=== PATIENT | male | born 1950 | race Caucasian/White ===

== ENCOUNTER 2016-10-18 00:23 | Emergency (ER) | payer OTHER, BC ==
[2016-10-18 00:31] VITALS: TEMP 97.7
[2016-10-18] MEDS ORDERED: NS 1,000 ML IV ONE ×2 (00:39→00:40)
[2016-10-18] MEDS ORDERED: METOCLOPRAMIDE 10 MG/2 ML VIAL IVP ONE (00:40)
[2016-10-18 01:01] LABS: ALANINE AMINOTRANSFERASE 32 IU/L (21-72); ALBUMIN 4.6 g/dL (3.5-5.0); ALKALINE PHOSPHATASE 80 IU/L (38-126); ANION GAP 8 mEq/L (8-16); ASPARTATE AMINOTRANSFERASE 20 IU/L (17-59); BILIRUBIN-CONJUGATED 0.4 mg/dL (0.0-0.5); BILIRUBIN-UNCONJUGATED 0.6 mg/dL (0.0-1.1); CALCIUM 9.4 mg/dL (8.5-10.4); CARBON DIOXIDE 27 mEq/l (22-31); CHLORIDE 105 mEq/L (97-110); CREATININE 0.7 mg/dL (0.7-1.3); GLOMERULAR FILTRATION RATE > 60; GLUCOSE 285 mg/dL (70-100); POTASSIUM 4.5 mEq/L (3.5-5.2); SODIUM 140 mEq/L (134-144); TOTAL PROTEIN 7.4 g/dL (6.3-8.2)
[2016-10-18 01:49] LABS: % IMMATURE GRANULYOCYTES 0.6 % (0.0-1.1); ABSOLUTE IMMATURE GRANULOCYTES 0.05 10^3/uL (0.00-0.10); ABSOLUTE NRBC COUNT 0.02 10^3/uL (0-0.01); ADD DIFF? NO; ADD MORPH? NO; ADD SCAN? NO; ATYPICAL LYMPHOCYTE FLAG 0 (0-99); FRAGMENT RBC FLAG 0 (0-99); HEMATOCRIT 44.7 % (40.0-51.0); LEFT SHIFT FLG 0 (0-99); LIPEMIA HEMOLYSIS FLAG 90 (0-99); MEAN CELL HEMOGLOBIN 31.1 pg (27.9-34.1); MEAN CELL HEMOGLOBIN CONCENTR. 35.8 g/dL (32.4-36.7); MEAN PLATELET VOLUME 10.5 fL (8.7-11.7); NRBC-AUTO% 0.2 % (0.0-0.2); PLATELET CLUMPS FLAG 10 (0-99); PLATELET COUNT 103 10^3/uL (150-400); RED BLOOD CELL COUNT 5.14 10^6/uL (4.40-6.38); RED CELL DISTRIBUTION WIDTH 13.1 % (11.5-15.2)
[2016-10-18 02:01] LABS: COLOR YELLOW; LEUKOCYTE ESTERASE,URINE NEGATIVE (NEGATIVE); NITRITE,URINE NEGATIVE (NEGATIVE)
--- NOTE | 2016-10-18 03:06 | EDPHY ---
H & P Stated Complaint: emesis and dizziness HPI/ROS: HPI The patient presents brought in by ambulance for nausea and vomiting that began about 4 hours ago. He had about 5 episodes of nonbloody nonbilious emesis. This was associated with a feeling of dizziness which he described it as lightheadedness upon standing. He has not had any abdominal pain, diarrhea, constipation or obstipation. The paramedics gave him Zofran on the way in, his blood sugar was checked and was 297. He has a history of hypertension and diabetes but has not been on medications for several years due to cost issues.. REVIEW OF SYSTEMS Constitutional: No fever, no chills. Eyes: No discharge. ENT: No sore throat. Cardiovascular: No chest pain, no palpitations. Respiratory: No cough, no shortness of breath. Gastrointestinal: No abdominal pain, no vomiting. Genitourinary: No hematuria. Musculoskeletal: No back pain. Skin: No rashes. Neurological: No headache. 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 PHYSICAL General Appearance: Alert, no distress Eyes: Pupils equal and round no pallor or injection ENT, Mouth: Mucous membranes dry Respiratory: There are no retractions, lungs are clear to auscultation Cardiovascular: Regular rate and rhythm Gastrointestinal: Abdomen is soft and non-tender, easily reducible ventral hernia Neurological: A&O, moves all extremities Skin: Warm and dry, no rashes Musculoskeletal: Neck is supple non tender Extremities: symmetrical, full range of motion Psychiatric: Patient is oriented X 3, there is no agitation Source: Patient, EMS - Personal History Current Tetanus/Diphtheria Vaccine: Yes Current Tetanus Diphtheria and Acellular Pertussis (TDAP): Yes - Medical/Surgical History Hx Asthma: No Hx Chronic Respiratory Disease: No Hx Diabetes: Yes Hx Cardiac Disease: No Hx Renal Disease: No Hx Cirrhosis: No Hx Alcoholism: Yes Hx HIV/AIDS: No Hx Splenectomy or Spleen Trauma: No Other PMH: pmh- colon ca (), deperession w/ suicide attempts (2004), recovering alcoholic. psh- colon resection, colostomy w/ resection - Social History Smoking Status: Current every day smoker Constitutional: Initial Vital Signs Temperature (C) 36.5 C 10/18/16 00:30 Heart Rate 61 10/18/16 00:30 Respiratory Rate 16 10/18/16 00:30 Blood Pressure 211/98 H 10/18/16 00:30 O2 Sat (%) 94 10/18/16 00:30 O2 Delivery Mode Room Air Allergies/Adverse Reactions: No Known Allergies Allergy (Verified 10/18/16 00:32) Home Medications: Medication Instructions Recorded Atorvastatin Calcium [Lipitor] 10/18/16 Ondansetron Odt [Zofran Odt 4 mg 4 mg PO Q4 PRN #10 tab 10/18/16 (*)] Medical Decision Making Differential Diagnosis: This is a 65-year-old man with history of diabetes, hypertension, colon cancer status post bowel resection who presents with several hours of nausea and vomiting associated with lightheadedness. On exam, he is mildly dehydrated, he is hypertensive, his abdominal exam is benign. Differential diagnosis includes viral gastroenteritis, toxin mediated enterocolitis, DKA, gastritis, less likely bowel obstruction given no abdominal tenderness and able to move his bowels. In the emergency room the patient was given IV fluids and antiemetics with complete resolution of his symptoms. He felt well. Labs were checked and revealed an elevated glucose with no signs of DKA. I have discussed this with him, I am concerned that he is poorly managed diabetes and hypertension because he is not taking his medications. I will give him information for follow-up with [facility] and have advised him to make an appointment soon. I will discharge him with a prescription for Zofran. I have discussed return precautions with him including any abdominal pain. - Data Points Laboratory Results: Laboratory Results 10/18/16 01:30 10/18/16 00:00 10/18/16 10/18/16 10/18/16 01:30 01:20 00:00 WBC 8.53 10^3/uL 10^3/uL (3.80-9.50) RBC 5.14 10^6/uL 10^6/uL (4.40-6.38) Hgb 16.0 g/dL g/dL (13.7-17.5) Hct 44.7 % % (40.0-51.0) MCV 87.0 fL fL (81.5-99.8) MCH 31.1 pg pg (27.9-34.1) MCHC 35.8 g/dL g/dL (32.4-36.7) RDW 13.1 % % (11.5-15.2) Plt Count 103 10^3/uL L 10^3/uL (150-400) MPV 10.5 fL fL (8.7-11.7) Neut % (Auto) 87.7 % H % (39.3-74.2) Lymph % (Auto) 8.2 % L % (15.0-45.0) [place] % (Auto) 2.7 % L % (4.5-13.0) Eos % (Auto) 0.4 % L % (0.6-7.6) Baso % (Auto) 0.4 % % (0.3-1.7) Nucleat RBC Rel Count 0.2 % % (0.0-0.2) Absolute Neuts (auto) 7.49 10^3/uL H 10^3/uL (1.70-6.50) Absolute Lymphs (auto) 0.70 10^3/uL L 10^3/uL (1.00-3.00) Absolute Monos (auto) 0.23 10^3/uL L 10^3/uL (0.30-0.80) Absolute Eos (auto) 0.03 10^3/uL 10^3/uL (0.03-0.40) Absolute Basos (auto) 0.03 10^3/uL 10^3/uL (0.02-0.10) Absolute Nucleated RBC 0.02 10^3/uL H 10^3/uL (0-0.01) Immature Gran % 0.6 % % (0.0-1.1) Immature Gran # 0.05 10^3/uL 10^3/uL (0.00-0.10) Sodium 140 mEq/L mEq/L (134-144) Potassium 4.5 mEq/L mEq/L (3.5-5.2) Chloride 105 mEq/L mEq/L (97-110) Carbon Dioxide 27 mEq/l mEq/l (22-31) Anion Gap 8 mEq/L mEq/L (8-16) BUN 16 mg/dL mg/dL (7-23) Creatinine 0.7 mg/dL mg/dL (0.7-1.3) Estimated GFR > 60 Glucose 285 mg/dL H mg/dL (70-100) Calcium 9.4 mg/dL mg/dL (8.5-10.4) Total Bilirubin 1.0 mg/dL mg/dL (0.1-1.4) Conjugated Bilirubin 0.4 mg/dL mg/dL (0.0-0.5) Unconjugated Bilirubin 0.6 mg/dL mg/dL (0.0-1.1) AST 20 IU/L IU/L (17-59) ALT 32 IU/L IU/L (21-72) Alkaline Phosphatase 80 IU/L IU/L (38-126) Total Protein 7.4 g/dL g/dL (6.3-8.2) Albumin 4.6 g/dL g/dL (3.5-5.0) Lipase 119.0 IU/L IU/L (23-300) Urine Color YELLOW Urine Appearance CLEAR Urine pH 7.0 (5.0-7.5) Ur Specific [place]m 1.017 (1.002-1.030) Urine Protein 1+ H (NEGATIVE) Urine Ketones TRACE H (NEGATIVE) Urine Blood NEGATIVE (NEGATIVE) Urine Nitrate NEGATIVE (NEGATIVE) Urine Bilirubin NEGATIVE (NEGATIVE) Urine Urobilinogen NEGATIVE EU EU (0.2-1.0) Ur Leukocyte Esterase NEGATIVE (NEGATIVE) Urine RBC 1-3 /hpf /hpf (0-3) Urine WBC 1-3 /hpf /hpf (0-3) Ur Epithelial Cells Not Reported Ur Culture Indicated? NOT INDICATED (NI) Urine Glucose 3+ H (NEGATIVE) 10/18/16 00:00 WBC REJ RBC REJ Hgb REJ Hct REJ MCV REJ MCH REJ MCHC REJ RDW REJ Plt Count REJ MPV REJ Neut % (Auto) REJ Lymph % (Auto) REJ [place] % (Auto) REJ Eos % (Auto) REJ Baso % (Auto) REJ Nucleat RBC Rel Count REJ Absolute Neuts (auto) REJ Absolute Lymphs (auto) REJ Absolute Monos (auto) REJ Absolute Eos (auto) REJ Absolute Basos (auto) REJ Absolute Nucleated RBC REJ Immature Gran % REJ Immature Gran # REJ Sodium Potassium Chloride Carbon Dioxide Anion Gap BUN Creatinine Estimated GFR Glucose Calcium Total Bilirubin Conjugated Bilirubin Unconjugated Bilirubin AST ALT Alkaline Phosphatase Total Protein Albumin Lipase Urine Color Urine Appearance Urine pH Ur Specific Helm Urine Protein Urine Ketones Urine Blood Urine Nitrate Urine Bilirubin Urine Urobilinogen Ur Leukocyte Esterase Urine RBC Urine WBC Ur Epithelial Cells Ur Culture Indicated? Urine Glucose Medications Given: Discontinued Medications Sodium Chloride (Ns) 1,000 mls @ 0 mls/hr IV ONCE ONE PRN Reason: Wide Open Stop: 10/18/16 00:40 Last Admin: 10/18/16 00:40 Dose: 1,000 mls Sodium Chloride (Ns) 1,000 mls @ 0 mls/hr IV ONCE ONE PRN Reason: Wide Open Stop: 10/18/16 00:41 Last Admin: 10/18/16 00:42 Dose: 1,000 mls Metoclopramide HCl (Reglan Injection) 10 mg IVP EDNOW ONE Stop: 10/18/16 00:41 Last Admin: 10/18/16 00:56 Dose: 10 mg Ondansetron HCl (Zofran Odt 4 Mg Prepack#2) 1 btl TAKEHOME EDNOW ONE Stop: 10/18/16 03:18 Last Admin: 10/18/16 03:18 Dose: 1 btl Departure - Departure Disposition: Home, Routine, Self-Care Clinical Impression: Nausea & vomiting Qualifiers: Vomiting type: unspecified Vomiting Intractability: non-intractable Qualified Code(s): R11.2 - Nausea with vomiting, unspecified Hyperglycemia due to type 2 diabetes mellitus Qualifiers: Diabetes mellitus ad terminal makeup operator insulin use: without ad terminal makeup operator use Qualified Code(s ): E11.65 - Type 2 diabetes mellitus with hyperglycemia HTN (hypertension) Qualifiers: Hypertension type: essential hypertension Qualified Code(s): I10 - Essential ( primary) hypertension Condition: Good Instructions: Acute Nausea and Vomiting (ED) Additional Instructions: Please return to the emergency room if your worse in any way. It is very important that you see a primary care doctor. I have given you the information for [facility]. Your diabetes and hypertension are out of control and need to be managed. Referrals: [facility] [Outside] - As per Instructions Prescriptions: Ondansetron Odt [Zofran Odt 4 mg (*)] 4 mg PO Q4 PRN #10 tab PRN Reason: Nausea/Vomiting, Can'T Take Po
[2016-10-18] MEDS ORDERED: ONDANSETRON 4MG PREPACK#2 BTL TAKEHOME ONE ×2 (03:11→03:17)
[2016-10-18 03:19] VITALS: BP 176/89; PULSE 55; RESP 16; O2SAT 93
== END 2016-10-18 03:19 | disposition home or self-care (01) ==
LOC: EDUNIT#
DX: R11.2 Nausea with vomiting, unspecified (principal); E11.65 Type 2 diabetes mellitus with hyperglycemia; I10 Essential (primary) hypertension; F17.200 Nicotine dependence, unspecified, uncomplicated; Z85.038 Personal history of other malignant neoplasm of large intestine
CPT/HCPCS: 96361; 96374; 99284; J2765

== ENCOUNTER 2016-11-12 18:58 | Inpatient (IN) | payer BC, OTHER ==
--- NOTE | 2016-11-12 19:11 | EDPHY ---
H & P Time Seen by Provider: 11/12/16 19:07 HPI/ROS: Chief complaint. Dizzy HPI. 66-year-old male dizziness for 3 weeks. He has a history of hypertension diabetes and been off his medication for quite some time. After the onset of dizziness [facility] went [facility] and was recently started on medication again for hypertension and diabetes. However the dizziness is continued. Today was somewhat worsening was off balance. The dizziness made him vomit. Really has more lightheaded sensation and near syncope then sense of motion or spinning. Denies chest discomfort, shortness of breath, abdominal pain. No previous similar symptoms. No recent URI symptoms. No change in his hearing. Patient has gradually poor vision and has seen an head athletic trainer/strength coach in the last couple weeks which shows bilateral cataracts and he has surgery scheduled coming up in the next few weeks. ROS Constitutional. no fever/chills, no weakness Eyes. Bilateral cataracts causing problem with vision ENT. no sore throat, no nasal drainage Cardiovascular. no chest pain Respiratory. no shortness of breath, no cough Abdominal. no abdominal pain, no nausea/vomiting, no diarrhea . no problems urinating MS. no calf pain/swelling, no neck/back pain, no joint pain Skin. no rash Lymph. no swollen glands Neuro. Dizziness and off balance. Near syncope Past Medical/Surgical History: Past medical history colon cancer with bowel resection, hypertension, diabetes Social History: Single, nonsmoker, no alcohol Smoking Status: Current every day smoker Physical Exam: General Appearance: Alert well-developed male mild distress vital signs show blood pressure 208/91 otherwise normal. Eyes: Pupils are equal round reactive. There is no nystagmus.. ENT, Mouth: Mucous membranes are moist. Respiratory: There are no retractions, lungs are clear to auscultation. Cardiovascular: Regular rate and rhythm. Gastrointestinal: Abdomen is soft and nontender, no masses, bowel sounds normal. Neurological: Awake and alert, sensory and motor exams grossly normal. Skin: Warm and dry, no rashes. Musculoskeletal: Neck is supple nontender. Extremities symmetrical, full range of motion. Psychiatric: Patient is oriented X 3, there is no agitation. Constitutional: Initial Vital Signs Temperature (C) 36.6 C 11/12/16 19:11 Heart Rate 73 11/12/16 19:11 Respiratory Rate 20 11/12/16 19:11 Blood Pressure 208/91 H 11/12/16 19:11 O2 Sat (%) 94 11/12/16 19:11 O2 Delivery Mode Room Air Allergies/Adverse Reactions: No Known Allergies Allergy (Verified 11/12/16 19:10) Home Medications: Medication Instructions Recorded Atorvastatin Calcium [Lipitor] 10/18/16 Ondansetron Odt [Zofran Odt 4 mg 4 mg PO Q4 PRN #10 tab 10/18/16 (*)] Aspirin 81mg (*) 11/12/16 Crestor 11/12/16 Lisinopril 11/12/16 Metformin HCl 11/12/16 Medical Decision Making - Diagnostics EKG Interpretation: EKG interpreted by me shows normal sinus rhythm with normal interval and axis. There is incomplete right bundle branch block. There is some T-wave flattening. No significant ST elevation or depression. No arrhythmia. The rate is 60 Imaging Results: Imaging Impressions Head CT 11/12/16 20:08 Impression: 1. Moderate atrophy. 2. No acute hemorrhage, hydrocephalus, or mass effect. 3. Cerebrovascular atherosclerosis. 4. No definite acute infarct. 5. Moderate microvascular ischemic gliosis. 6. Old lacunar infarcts bilateral cerebral white matter. 7.Consider MRI of the brain without and with contrast enhancement, if there is continued clinical concern. Findings and recommendations discussed with Emergency Department physician, KAJAL MELENDEZ at 2045 hour, 11/12/2016. Final report concurs with initial preliminary interpretation. Head CT reviewed by me and discussed with shows atrophy but otherwise nonacute Procedures: IV normal saline, monitor. Meclizine by mouth ED Course/Re-evaluation: Re-evaluation 8:10 p.m.--stable. We discussed lab results so far and recommendation for head CT. Patient expresses understanding and agreement re-evaluation 9:30 p.m.--patient is still quite dizzy. He feels that he is off balance enough that he is a fall risk at home. He lives alone and feels hit he cannot go home tonight. He and I discussed imaging and lab results. I consulted and discussed the case with Dr. Young, hospitalist, who agrees to the admission Differential Diagnosis: I considered CVA, cardiac arrhythmia, acute coronary syndrome. Patient's blood pressure is poorly controlled and his blood sugar is also poorly controlled despite starting new medication in the last couple weeks. - Data Points Laboratory Results: Laboratory Results 11/12/16 19:05 11/12/16 19:05 11/12/16 11/12/16 19:05 19:05 WBC 12.20 10^3/uL H 10^3/uL (3.80-9.50) RBC 5.73 10^6/uL 10^6/uL (4.40-6.38) Hgb 17.4 g/dL g/dL (13.7-17.5) Hct 47.8 % % (40.0-51.0) MCV 83.4 fL fL (81.5-99.8) MCH 30.4 pg pg (27.9-34.1) MCHC 36.4 g/dL g/dL (32.4-36.7) RDW 12.7 % % (11.5-15.2) Plt Count 153 10^3/uL 10^3/uL (150-400) MPV 10.0 fL fL (8.7-11.7) Neut % (Auto) 85.5 % H % (39.3-74.2) Lymph % (Auto) 11.6 % L % (15.0-45.0) [place] % (Auto) 1.8 % L % (4.5-13.0) Eos % (Auto) 0.2 % L % (0.6-7.6) Baso % (Auto) 0.3 % % (0.3-1.7) Nucleat RBC Rel Count 0.0 % % (0.0-0.2) Absolute Neuts (auto) 10.43 10^3/uL H 10^3/uL (1.70-6.50) Absolute Lymphs (auto) 1.41 10^3/uL 10^3/uL (1.00-3.00) Absolute Monos (auto) 0.22 10^3/uL L 10^3/uL (0.30-0.80) Absolute Eos (auto) 0.03 10^3/uL 10^3/uL (0.03-0.40) Absolute Basos (auto) 0.04 10^3/uL 10^3/uL (0.02-0.10) Absolute Nucleated RBC 0.00 10^3/uL 10^3/uL (0-0.01) Immature Gran % 0.6 % % (0.0-1.1) Immature Gran # 0.07 10^3/uL 10^3/uL (0.00-0.10) Sodium 140 mEq/L mEq/L (134-144) Potassium 4.2 mEq/L mEq/L (3.5-5.2) Chloride 102 mEq/L mEq/L (97-110) Carbon Dioxide 23 mEq/l mEq/l (22-31) Anion Gap 15 mEq/L mEq/L (8-16) BUN 18 mg/dL mg/dL (7-23) Creatinine 0.8 mg/dL mg/dL (0.7-1.3) Estimated GFR > 60 Glucose 230 mg/dL H mg/dL (70-100) Calcium 9.8 mg/dL mg/dL (8.5-10.4) Troponin I < 0.012 ng/mL ng/mL (0-0.034) Medications Given: Discontinued Medications Sodium Chloride (Ns) 1,000 mls @ 0 mls/hr IV ONCE ONE PRN Reason: Wide Open Stop: 11/12/16 19:30 Last Admin: 11/12/16 19:43 Dose: 1,000 mls Meclizine HCl (Meclizine Hcl) 25 mg PO EDNOW ONE Stop: 11/12/16 19:30 Last Admin: 11/12/16 19:43 Dose: 25 mg Departure - Departure Disposition: [facility] Inpatient Acute Clinical Impression: Near syncope Condition: Fair Referrals: Patient,NotPresent [Unknown] - As per Instructions
[2016-11-12] MEDS ORDERED: MECLIZINE HCL 25 MG TAB PO ONE (19:29)
[2016-11-12] MEDS ORDERED: NS 1,000 ML IV ONE (19:29)
[2016-11-12 19:34] LABS: % IMMATURE GRANULYOCYTES 0.6 % (0.0-1.1); ABSOLUTE IMMATURE GRANULOCYTES 0.07 10^3/uL (0.00-0.10); ADD DIFF? NO; ADD MORPH? NO; ADD SCAN? NO; ATYPICAL LYMPHOCYTE FLAG 0 (0-99); FRAGMENT RBC FLAG 0 (0-99); HEMATOCRIT 47.8 % (40.0-51.0); HEMOGLOBIN 17.4 g/dL (13.7-17.5); LEFT SHIFT FLG 0 (0-99); LIPEMIA HEMOLYSIS FLAG 90 (0-99); MEAN CELL HEMOGLOBIN 30.4 pg (27.9-34.1); MEAN CELL HEMOGLOBIN CONCENTR. 36.4 g/dL (32.4-36.7); MEAN CELL VOLUME 83.4 fL (81.5-99.8); PLATELET CLUMPS FLAG 20 (0-99); PLATELET COUNT 153 10^3/uL (150-400); RED BLOOD CELL COUNT 5.73 10^6/uL (4.40-6.38); RED CELL DISTRIBUTION WIDTH 12.7 % (11.5-15.2)
[2016-11-12 19:41] LABS: ANION GAP 15 mEq/L (8-16); CALCIUM 9.8 mg/dL (8.5-10.4); CARBON DIOXIDE 23 mEq/l (22-31); CHLORIDE 102 mEq/L (97-110); CREATININE 0.8 mg/dL (0.7-1.3); GLOMERULAR FILTRATION RATE > 60; GLUCOSE 230 mg/dL (70-100); POTASSIUM 4.2 mEq/L (3.5-5.2); SODIUM 140 mEq/L (134-144)
[2016-11-12 19:52] LABS: TROPONIN I < 0.012 ng/mL (0-0.034)
--- NOTE | 2016-11-12 20:59 | CPEKG ---
Heart Rate: 65 RR Interval: 923 P-R Interval: 164 QRSD Interval: 108 QT Interval: 444 QTC Interval: 462 P Emblem: 48 QRS Emblem: 38 T Wave Emblem: -82 EKG Severity - ABNORMAL ECG - EKG Impression: SINUS RHYTHM EKG Impression: INCOMPLETE RIGHT BUNDLE BRANCH BLOCK Electronically Signed By: Nathan Salter 12-Nov-2016 21:28:29
[2016-11-12] MEDS ORDERED: ACETAMINOPHEN 325 MG TAB PO PRN (22:27)
[2016-11-12] MEDS ORDERED: HYDROCODONE/APAP 5/325 TAB PO PRN (22:27)
[2016-11-12] MEDS ORDERED: ALBUTEROL 3 ML DEYVIAL IH PRN (22:27)
[2016-11-12] MEDS ORDERED: ONDANSETRON DISINTEGRATING 4 MG TAB PO PRN (22:27)
[2016-11-12] MEDS ORDERED: ONDANSETRON 4 MG/2 ML VIAL IVP PRN (22:27)
[2016-11-12] MEDS ORDERED: LABETALOL HCL 50 MG/10 ML SYR IVP ONE (22:30)
[2016-11-12] MEDS ORDERED: LABETALOL HCL 5 MG/ML 20 ML MDV IVP PRN (22:31)
[2016-11-12] MEDS ORDERED: D50W 25 GM/50 ML SYR IVP PRN (23:06)
--- NOTE | 2016-11-13 02:10 | PDGENHP ---
History and Physical - Chief Complaint dizziness - History of Present Illness Patient was seen and examined on 11/12/2016 The patient is a 66-year-old male with a history of hypertension, DM 2, hyperlipidemia who presents to the ED with complaint of dizziness. Patient states he had been off his anti-hypertensive meds for some time (reason unclear) , but his dizziness began about 3 weeks ago. He describes it as a feeling of being unbalanced and lightheaded , associated with nausea and vomiting. Came to the ED at the onset of his symptoms about 3 weeks ago where he was given symptomatic treatment of his nausea and referred to the [facility] for primary care. Reports establish care at the [facility], where he was restarted on antihypertensives, oral diabetic medicines and statin. Despite reported compliance with all as newly prescribed meds, patient's dizziness has persisted. He also reports an associated blurriness in his vision, which he reports has been diagnosed as due to cataracts, for which he is seeing an ophthalmic photographer. Today he again felt his dizziness, felt off balance although did not fall, so he decided to come to the ED for further evaluation. On arrival to the ED patient was afebrile, markedly hypertensive and saturating well on room air. Labs revealed normal BMP, mild leukocytosis on CBC. CT head was obtained and revealed chronic lacunar infarcts, but no acute infarct, edema or hemorrhage. EKG showed sinus rhythm without ST /T-wave changes. He was then admitted to the hospital service for further management. History Information - Allergies/Home Medication List Allergies/Adverse Reactions: No Known Allergies Allergy (Verified 11/12/16 19:10) Home Medications: Aspirin [Aspirin 325 mg (*)] 325 mg PO DAILY 11/12/16 [Last Taken 11/12/16] Lisinopril [Zestril 10 mg (*)] 20 mg PO DAILY 11/12/16 [Last Taken 11/12/16] Rosuvastatin Calcium [Crestor 10mg (RX)] 10 mg PO DAILY 11/12/16 [Last Taken 12/24] metFORMIN HCL [Glucophage 500 mg (*)] 500 mg PO BIDMEAL 11/12/16 [Last Taken 12/24 FIRST DOSE] I have personally reviewed and updated: family history, medical history, social history, surgical history - Past Medical History diabetes type 2, hypertension, hyperlipidemia Additional medical history: History of colon cancer S/P resection, in remission - Surgical History Additional surgical history: partial colectomy - Family History Additional family history: father: Mi at 68 - Social History Smoking Status: Current every day smoker (1/2 ppd times 45 years) Alcohol Use: None Drug Use: None Additional social history: 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 lives alone is independent in ADLs. Review of Systems ROS: 10pt was reviewed & negative except for what was stated in HPI & below Physical Exam Temp Pulse Resp BP Pulse Ox 36.7 C 61 18 202/90 H 92 11/13/16 00:00 11/13/16 00:00 11/13/16 00:00 11/13/16 00:00 11/13/16 00:00 Constitutional: no apparent distress, appears nourished, not in pain Eyes: PERRL, anicteric sclera, EOMI Ears, Nose, Mouth, Throat: moist mucous membranes, hearing normal, ears appear normal, no oral mucosal ulcers Cardiovascular: regular rate and rhythym, no murmur, rub, or gallop, pulses symmetric bilaterally, No JVD, No edema Peripheral Pulses: 2+: dorsalis-pedis (R), dorsalis-pedis (L) Respiratory: no respiratory distress, no rales or rhonchi, clear to auscultation Gastrointestinal: normoactive bowel sounds, soft, non-tender abdomen, no palpable masses, No guarding, No rebound Genitourinary: no bladder fullness, no bladder tenderness Skin: warm, normal color, no rashes or abrasions, no fluctuance, no induration, No mottled Musculoskeletal: full muscle strength, no muscle tenderness, normal joint ROM, no joint effusions Neurologic: AAOx3, sensation intact bilaterally, CN II-XII Intact, No weakness, No numbness, No facial droop Psychiatric: interacting appropriately, not anxious, not encephalopathic, thought process linear Lab Data & Imaging Review 11/12/16 19:05 11/12/16 19:05 WBC 12.20 10^3/uL (3.80-9.50) H 11/12/16 19:05 RBC 5.73 10^6/uL (4.40-6.38) 11/12/16 19:05 Hgb 17.4 g/dL (13.7-17.5) 11/12/16 19:05 Hct 47.8 % (40.0-51.0) 11/12/16 19:05 MCV 83.4 fL (81.5-99.8) 11/12/16 19:05 MCH 30.4 pg (27.9-34.1) 11/12/16 19:05 MCHC 36.4 g/dL (32.4-36.7) 11/12/16 19:05 RDW 12.7 % (11.5-15.2) 11/12/16 19:05 Plt Count 153 10^3/uL (150-400) 11/12/16 19:05 MPV 10.0 fL (8.7-11.7) 11/12/16 19:05 Neut % (Auto) 85.5 % (39.3-74.2) H 11/12/16 19:05 Lymph % (Auto) 11.6 % (15.0-45.0) L 11/12/16 19:05 [place] % (Auto) 1.8 % (4.5-13.0) L 11/12/16 19:05 Eos % (Auto) 0.2 % (0.6-7.6) L 11/12/16 19:05 Baso % (Auto) 0.3 % (0.3-1.7) 11/12/16 19:05 Nucleat RBC Rel Count 0.0 % (0.0-0.2) 11/12/16 19:05 Absolute Neuts (auto) 10.43 10^3/uL (1.70-6.50) H 11/12/16 19:05 Absolute Lymphs (auto) 1.41 10^3/uL (1.00-3.00) 11/12/16 19:05 Absolute Monos (auto) 0.22 10^3/uL (0.30-0.80) L 11/12/16 19:05 Absolute Eos (auto) 0.03 10^3/uL (0.03-0.40) 11/12/16 19:05 Absolute Basos (auto) 0.04 10^3/uL (0.02-0.10) 11/12/16 19:05 Absolute Nucleated RBC 0.00 10^3/uL (0-0.01) 11/12/16 19:05 Immature Gran % 0.6 % (0.0-1.1) 11/12/16 19:05 Immature Gran # 0.07 10^3/uL (0.00-0.10) 11/12/16 19:05 Sodium 140 mEq/L (134-144) 11/12/16 19:05 Potassium 4.2 mEq/L (3.5-5.2) 11/12/16 19:05 Chloride 102 mEq/L (97-110) 11/12/16 19:05 Carbon Dioxide 23 mEq/l (22-31) 11/12/16 19:05 Anion Gap 15 mEq/L (8-16) 11/12/16 19:05 BUN 18 mg/dL (7-23) 11/12/16 19:05 Creatinine 0.8 mg/dL (0.7-1.3) 11/12/16 19:05 Estimated GFR > 60 11/12/16 19:05 Glucose 230 mg/dL (70-100) H 11/12/16 19:05 Calcium 9.8 mg/dL (8.5-10.4) 11/12/16 19:05 Troponin I < 0.012 ng/mL (0-0.034) 11/12/16 19:05 Visualized and Interpreted imaging results: Yes Interpretation: CT head: evidence of chronic lacunar infarcts, moderate atrophy , no acute edema, infarct or hemorrhage. Visualized and Interpreted EKG results: Yes EKG Interpretation: Positive for: normal sinsus rhythm Assessment & Plan Assessment: Patient is a 66-year-old male with a history of hypertension, DM 2, hyperlipidemia who presents to the ED with complaint of dizziness. ED workup reveals marked hypertension, CT head shows no acute changes. Plan: # dizziness This may be a symptom of his uncontrolled hypertension vs BPPV versus primary neurologic event. Patient reports symptoms resolve when he is sedentary and not moving, but are worse with activity or when trying to walk. Noncontrast CT head did not show any acute abnormalities. Will attempt to control patient's BP, give trial of meclizine, and consider further head imaging if symptoms persist. # Uncontrolled hypertension SBP was greater than 200 on presentation, with no evidence of acute end-organ damage. Likely chronically uncontrolled, with acute worsening due to above symptoms. Will attempt to lower BP by about 25% within the 1st hours and then to normal levels beyond that. Give hydralazine prn, resume home lisinopril 20 mg po and consider adding a second oral agent as needed. Will also check TTE, follow cardiac enzymes and EKGs. # DM2 On metformin in outpatient. Will monitor FS and provide sliding scale coverage. # HLD Cont home statin # dispo: admit to observation status # gen: cardiac/diabetic diet DVT ppx: lovenox if staying > 24 hours FUll code
--- NOTE | 2016-11-13 05:38 | CPEKG ---
Heart Rate: 75 RR Interval: 800 P-R Interval: 164 QRSD Interval: 106 QT Interval: 408 QTC Interval: 456 P [place]: 66 QRS [place]: 65 T Wave [place]: -77 EKG Severity - BORDERLINE ECG - EKG Impression: SINUS RHYTHM EKG Impression: BORDERLINE T ABNORMALITIES, INFERIOR LEADS Electronically Signed By: Nate Aguila 13-Nov-2016 23:59:38
[2016-11-13 06:46] LABS: % IMMATURE GRANULYOCYTES 0.5 % (0.0-1.1); ABSOLUTE IMMATURE GRANULOCYTES 0.05 10^3/uL (0.00-0.10); ADD DIFF? NO; ADD MORPH? NO; ADD SCAN? NO; ATYPICAL LYMPHOCYTE FLAG 0 (0-99); FRAGMENT RBC FLAG 0 (0-99); HEMATOCRIT 40.6 % (40.0-51.0); LEFT SHIFT FLG 0 (0-99); LIPEMIA HEMOLYSIS FLAG 90 (0-99); MEAN CELL HEMOGLOBIN 30.7 pg (27.9-34.1); MEAN CELL HEMOGLOBIN CONCENTR. 36.9 g/dL (32.4-36.7); MEAN PLATELET VOLUME 9.9 fL (8.7-11.7); PLATELET CLUMPS FLAG 0 (0-99); PLATELET COUNT 128 10^3/uL (150-400); RED BLOOD CELL COUNT 4.89 10^6/uL (4.40-6.38); RED CELL DISTRIBUTION WIDTH 12.8 % (11.5-15.2)
[2016-11-13 06:50] LABS: INR 1.08 (0.83-1.16); PROTIME(PATIENT) 13.9 SEC (12.0-15.0)
[2016-11-13 07:33] LABS: ANION GAP 7 mEq/L (8-16); CALCIUM 8.9 mg/dL (8.5-10.4); CARBON DIOXIDE 24 mEq/l (22-31); CHLORIDE 105 mEq/L (97-110); CREATININE 0.7 mg/dL (0.7-1.3); GLOMERULAR FILTRATION RATE > 60; GLUCOSE 170 mg/dL (70-100); MAGNESIUM 1.7 mg/dL (1.6-2.3); POTASSIUM 4.2 mEq/L (3.5-5.2); SODIUM 136 mEq/L (134-144)
[2016-11-13] MEDS: ASPIRIN 325 MG TAB PO SCH (09:30)
[2016-11-13] MEDS: LISINOPRIL 20 MG TAB PO SCH (09:31)
[2016-11-13] MEDS: ROSUVASTATIN CALCIUM 10 MG TAB PO SCH (09:31)
[2016-11-13] MEDS: INSULIN LISPRO 100 UNIT/ML SC SCH ×3 (09:49→18:08)
--- NOTE | 2016-11-13 12:04 | ECHO ---
[id number] [id number] + + [address] : : [place] [address] : : [phone] + + Adult Echocardiographic Report + ---------+ :Name: JUDIT LIM TStudy Date: 11/13/2016 10:50 AM : : Hospital Admission Number: [id number] Keturah bateman: 206: :: 1950 Gender: Male Height: 69 i n : :Age: 66 yrs Race: WH Weight: 170 lb : :Reason For Study: accelerated HTN : : BSA: 1.9 met ers2 : :History: No previous : + ---------+ MMode/2D Measurements \T\ Calculations IVSd: 1.4 cm LVIDd: 4.5 cm FS: 45.9 % LVOT diam: 2.1 cm LVPWd: 0.97 cm LVIDs: 2.4 cm EDV(Teich): LVOT area: 90.7 ml 3.4 cm2 ESV(Teich): 20.5 ml EF(Teich): 77.4 % LVLd ap4: 6.9 cm SV(MOD-sp4): EDV(MOD-sp4): 45.0 ml 64.0 ml LVLs ap4: 5.9 cm ESV(MOD-sp4): 19.0 ml EF(MOD-sp4): 70.3 % Normal Measurement Values: + + :LVIDd (3.5-5.7cm) IVSd (0.6-1.1cm) LVPWd (0.6-1.1cm) Aortic Root (2.0-3.7cm)Left Atrium (1.5-4.0cm): :LV Vol(d) (76-115ml) LV Vol(s) (29-48ml) Ejec Fraction (50-65%)PV Oh (0.6- 1.2m/s) TV Oh (0.4-1.0m/s) : :MV E Oh (0.8-1.0m/s)MV A Oh (0.3-1.0m/s)LVOT Oh (0.7-1.2m/s) Asc Ao Oh ( 0.9-1.8m/s) : + + Doppler Measurements \T\ Calculations MV E max oh: MV V2 mean: Ao mean PG: LV V1 max: 77.0 cm/sec 60.7 cm/sec 3.3 mmHg 119.4 cm/sec MV A max oh: MV mean PG: Ao V2 mean: LV V1 max P.7 cm/sec 1.7 mmHg 86.8 cm/sec 5.7 mmHg MV E/A: 0.75 MV V2 VTI: 28.4 cmAo V2 VTI: 25.1 cm LV V1 mean PG: MV dec time: MVA(VTI): 2.9 cm2 FARZANA(I,D): 3.3 cm2 2.8 mmHg 0.26 sec LV V1 mean: 74.9 cm/sec LV V1 VTI: 24.2 cm SV(LVOT): 83.3 ml PA V2 max: TR max oh: 96.4 cm/sec 241.6 cm/sec PA max PG: TR max P.7 mmHg 23.4 mmHg RAP systole: 10.0 mmHg RVSP(TR): 33.4 mmHg Left Ventricle The left ventricle is normal in size and function. There is mild asymmetric left ventricular hypertrophy. Ejection Fraction = 60-70%. There is Doppler evidence for diastolic dysfunction. No regional wall motion abnormalities noted. Right Ventricle The right ventricle is not well visualized. The right ventricular systolic function is normal. Atria The left atrial size is normal. Right atrial size is normal. Mitral Valve The mitral valve is normal in structure and function. There is no mitral valve stenosis. There is trace mitral regurgitation. Tricuspid Valve Normal tricuspid valve. There is no tricuspid stenosis. There is trace to mild tricuspid regurgitation. Right ventricular systolic pressure is normal. Aortic Valve The aortic valve is normal in structure and function. There is no aortic stenosis. There is no aortic insufficiency. Pulmonic Valve The pulmonic valve is not well visualized. There is no pulmonic valvular stenosis. There is no pulmonic valvular regurgitation. Great Vessels The aortic root is normal size. Pericardium/Pleural There is a fat pad seen. There is no pericardial effusion. Conclusion A complete two-dimensional transthoracic echocardiogram was performed (2D, M-mode, Doppler and color flow Doppler). The left ventricle is normal in size and function. There is mild asymmetric left ventricular hypertrophy. Ejection Fraction = 60-70%. There is Doppler evidence for diastolic dysfunction. There is trace mitral regurgitation. There is trace to mild tricuspid regurgitation. Right ventricular systolic pressure is normal. The aortic valve is normal in structure and function. No prior echo Final Reading Physician: Dr Roxanne Mcqueen electronically signed on 11/13/2016 12:03 PM Ordering Physician: Naa Anthony Performed By: Kristina Gordon
--- NOTE | 2016-11-13 14:25 | HOSPPROG ---
Hospitalist Progress Note Assessment/Plan: # dizziness - head CT neg for acute changes, but does show old lacunar infarct. ?BPPV / inner ear disturbance vs visual input disturbance with cataract hx vs brainstem stroke. Orthostatics negative. -check MRI to r/o cerebellar stroke -cont ASA, statin -add meclizine for symptom management # Uncontrolled hypertension - SBP was greater than 200 on presentation, with no evidence of acute end-organ damage. He has not required prn meds beyond his daily lisinopril dose and BP's are improved today. # DM2 - bg's fairly well controlled. Resume MTF and cont SSI. # HLD - Cont home statin # dispo: change to inpt as requires further workup of dizziness and acute PT/OT for unsteadiness # gen: cardiac/diabetic diet DVT ppx: lovenox FUll code Subjective: Pt continues to c/o dizziness, mostly with sitting and standing/ walking. No significant symptoms at rest. Describes light-headed feeling, but also endorses going off to one side / vertigo. Reports cataracts and plans for surgery. Objective: Vital Signs Temp Pulse Resp BP Pulse Ox 36.8 C 69 16 146/70 H 91 L 11/13/16 12:10 11/13/16 12:10 11/13/16 12:10 11/13/16 12:10 11/13/16 12:10 Laboratory Results 11/13/16 06:35 11/12/16 11/13/16 11/14/16 05:59 05:59 05:59 Intake Total 1100 Output Total 900 350 Balance 200 -350 PT 13.9 SEC (12.0-15.0) 11/13/16 06:35 INR 1.08 (0.83-1.16) 11/13/16 06:35 - Physical Exam Constitutional: no apparent distress Eyes: PERRL, other (+horizontal nystagmus) Ears, Nose, Mouth, Throat: moist mucous membranes Cardiovascular: regular rate and rhythym Respiratory: no respiratory distress, clear to auscultation Gastrointestinal: normoactive bowel sounds, soft, non-tender abdomen Skin: warm Musculoskeletal: full muscle strength Neurologic: AAOx3, other (no facial asymmetry, neg pronator drift) ICD10 Worksheet Patient Problems: Problems Problem Status Onset Near syncope Acute
[2016-11-13] MEDS: MECLIZINE HCL 25 MG TAB PO PRN (15:52)
[2016-11-13] MEDS: metFORMIN HCL 500 MG TAB PO SCH (18:18)
[2016-11-14] MEDS: hydrALAZINE 20 MG/ML VIAL IVP PRN (06:16)
[2016-11-14] MEDS: MECLIZINE HCL 25 MG TAB PO PRN (06:18)
[2016-11-14] MEDS: INSULIN LISPRO 100 UNIT/ML SC SCH ×3 (07:42→16:51)
[2016-11-14] MEDS: LISINOPRIL 20 MG TAB PO SCH (07:58)
[2016-11-14] MEDS: metFORMIN HCL 500 MG TAB PO SCH (07:58)
[2016-11-14] MEDS: ROSUVASTATIN CALCIUM 10 MG TAB PO SCH (07:59)
[2016-11-14] MEDS: ASPIRIN 325 MG TAB PO SCH (07:59)
[2016-11-14] MEDS ORDERED: GADOBUTROL 10 ML VIAL IVP ONE (10:33)
--- NOTE | 2016-11-14 10:39 | HOSPPROG ---
Hospitalist Progress Note Assessment/Plan: # Acute/subacute cerebellar stroke - this is source of his dizziness. Neurology consulted, discussed with Dr. Sandra last night and Dr. Cruz this am. Telemetry personally reviewed, no e/o A fib thus far, continue monitoring. -echo today -MRI with contrast and angio head/neck per neurology -cont asa, statin -will need outpt senior care cardiac monitoring if no A fib identified here -BP control as below # Uncontrolled hypertension - SBP was greater than 200 on presentation, now 170 's-180's. -will up-titrate lisinopril, goal BP <140 in setting of embolic stroke # DM2 - bg's fairly well controlled. Hold MTF due to need for contrast studies. -SSI for bg control # HLD - Cont home statin # dispo: cont inpt, PT/OT # gen: cardiac/diabetic diet DVT ppx: lovenox FUll code Subjective: Pt still quite dizzy with ambulation, feels ok at rest in bed. No CP, SOB or palpitations. No fevers/chills. Eating well, uop good. Objective: Vital Signs Temp Pulse Resp BP Pulse Ox 36.8 C 69 19 173/84 H 92 11/14/16 07:11 11/14/16 07:11 11/14/16 07:11 11/14/16 07:11 11/14/16 07:11 11/13/16 11/14/16 11/15/16 05:59 05:59 05:59 Intake Total 500 Output Total 800 Balance -300 PT 13.9 SEC (12.0-15.0) 11/13/16 06:35 INR 1.08 (0.83-1.16) 11/13/16 06:35 - Physical Exam Constitutional: no apparent distress Eyes: PERRL Ears, Nose, Mouth, Throat: moist mucous membranes Cardiovascular: regular rate and rhythym Respiratory: no respiratory distress, clear to auscultation Gastrointestinal: normoactive bowel sounds, soft, non-tender abdomen Skin: warm, other (+facial rosacea) Musculoskeletal: full muscle strength Neurologic: AAOx3 Psychiatric: interacting appropriately ICD10 Worksheet Patient Problems: Problems Problem Status Onset Near syncope Acute
[2016-11-14] MEDS ORDERED: LISINOPRIL 20 MG TAB PO ONE (11:45)
[2016-11-14 14:57] LABS: CHOLESTEROL 125 mg/dL (140-220); CHOLESTEROL/HDL RATIO 2.98 RATIO (1.00-4.97); HIGH DENSITY LIPOPROTEIN 42 mg/dL (40-65); LOW DENSITY LIPOPROTEIN 63 mg/dL (80-100); NON-HIGH DENSITY LIPOPROTEIN 83 mg/dL (90-129); TRIGLYCERIDE 103 mg/dL (40-150); VERY LOW DENSITY LIPOPROTEINS 20 mg/dL (8-25)
--- NOTE | 2016-11-14 16:35 | ECHO ---
[id number] [id number] + + [address] : : [place] [address] : : [phone] + + Adult Echocardiographic Report + ----+ :Name: JUDIT LIM TStudy Date: 11/14/2016 12:36 PM : : Hospital Admission Number: [id number] : :: 1950 Gender: Male Height: 69 i n : :Age: 66 yrs Race: WH Weight: 170 lb : :Reason For Study: Eval for Embolic Source, Bubble Exam : : BSA: 1.9 met ers2: + ----+ MMode/2D Measurements \T\ Calculations IVSd: 1.4 cm LVIDd: 3.9 cm FS: 41.2 % Ao root diam: 3.5 cm LVPWd: 1.2 cm LVIDs: 2.3 cm EDV(Teich): 65.2 ml ACS: 1.9 cm ESV(Teich): 17.8 ml EF(Teich): 72.8 % Normal Measurement Values: + + :LVIDd (3.5-5.7cm) IVSd (0.6-1.1cm) LVPWd (0.6-1.1cm) Aortic Root (2.0-3.7cm)Left Atrium (1.5-4.0cm): :LV Vol(d) (76-115ml) LV Vol(s) (29-48ml) Ejec Fraction (50-65%)PV Oh (0.6- 1.2m/s) TV Oh (0.4-1.0m/s) : :MV E Oh (0.8-1.0m/s)MV A Oh (0.3-1.0m/s)LVOT Oh (0.7-1.2m/s) Asc Ao Oh ( 0.9-1.8m/s) : + + Doppler Measurements \T\ Calculations MV E max oh: Ao V2 max: LV V1 max: PA V2 max: 69.1 cm/sec 118.1 cm/sec 104.6 cm/sec 82.8 cm/sec MV A max oh: Ao max PG: LV V1 max PG: PA max P.8 cm/sec 5.6 mmHg 4.4 mmHg 2.7 mmHg MV E/A: 0.77 TR max oh: 237.5 cm/sec TR max P.6 mmHg RAP systole: 5.0 mmHg RVSP(TR): 27.6 mmHg Left Ventricle The left ventricle is normal in size. There is mild to moderate concentric left ventricular hypertrophy. The left ventricular ejection fraction is normal. There is Doppler evidence for diastolic dysfunction. Ejection Fraction = 73%. The left ventricular wall motion is normal. Right Ventricle The right ventricle is normal in size and function. Atria The left atrial size is normal. Right atrial size is normal. Injection of contrast documented no interatrial shunt. The interatrial septum is intact with no evidence for an atrial septal defect. Mitral Valve The mitral valve is normal in structure and function. There is no mitral valve stenosis. There is trace mitral regurgitation. Tricuspid Valve The tricuspid valve is normal in structure and function. There is trace tricuspid regurgitation. Aortic Valve The aortic valve is normal in structure and function. The aortic valve is trileaflet. The aortic valve opens well. There is no aortic stenosis. There is no aortic insufficiency. Pulmonic Valve The pulmonic valve is normal in structure and function. There is no pulmonic valvular regurgitation. Great Vessels The aortic root is normal size. Pericardium/Pleural There is no pericardial effusion. Conclusion A complete two-dimensional transthoracic echocardiogram was performed (2D, M-mode, Doppler and color flow Doppler). There is mild to moderate concentric left ventricular hypertrophy. The left ventricular ejection fraction is normal. There is Doppler evidence for diastolic dysfunction. Ejection Fraction = 73%. The left ventricular wall motion is normal. Injection of contrast documented no interatrial shunt. The interatrial septum is intact with no evidence for an atrial septal defect. There is trace mitral regurgitation. The tricuspid valve is normal in structure and function. There is trace tricuspid regurgitation. The aortic valve is normal in structure and function. The aortic valve is trileaflet. There is no pericardial effusion. Final Reading Physician: Dr Roxanne Mcqueen electronically signed on 11/14/2016 04:34 PM Ordering Physician: Lazaro Cruz Performed By: Antonio French, [facility]
[2016-11-14] MEDS: ENOXAPARIN 40 MG/0.4 ML SYR SC SCH (17:00)
--- NOTE | 2016-11-14 17:01 | NEUROPROG ---
Assessment: 55 minutes of total unit time with review of case and face to face time with patient. Objective: Vital Signs Temp Pulse Resp BP Pulse Ox 36.8 C 67 18 160/84 H 94 11/14/16 15:37 11/14/16 15:37 11/14/16 15:37 11/14/16 15:37 11/14/16 15:37 11/13/16 11/14/16 11/15/16 05:59 05:59 05:59 Intake Total 500 360 Output Total 800 200 Balance -300 160 PT 13.9 SEC (12.0-15.0) 11/13/16 06:35 INR 1.08 (0.83-1.16) 11/13/16 06:35 Allergies/Adverse Reactions: No Known Allergies Allergy (Verified 11/12/16 19:10)
--- NOTE | 2016-11-14 21:59 | GCON ---
[f rep st] CONSULTATION NEUROLOGIC CONSULTATION REFERRING PHYSICIAN: Jelena Bowen MD HISTORY: The patient is a 66-year-old gentleman whom I am asked to see in Neurologic consultation r egarding stroke. The patient presented to the emergency department on November 12. At that time, he sp ecifically reported dizziness for about 3 weeks. He had evaluation in the [facility], and had been started on medication for his diabetes and hypertensive medications, which he had been off of f or some time, but symptoms have continued, and he was having trouble with balance, and sometimes vom iting with the dizziness. He came to the emergency department, and had acute evaluation, which did include head CT showing no acute stroke, but atrophy and microvascular change, and bilateral old lac unar infarcts in the white matter. He was quite dizzy, according to the reports, and felt very off- balance, and was thought to be unsafe to go home, and so he was admitted. 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 Collins, and subsequently had MRI later on the , in which the MRI doc umented multiple areas of acute ischemic change most likely, versus other atypical white matter proc ess. I was consulted today to evaluate the patient, and obtain history from him that symptoms are s imilar, but a little bit better, in terms of the intensity. He has never had this before. He does not have any long history of recurrent neurologic events. No history of TIA or prior stroke. PAST MEDICAL HISTORY: Prior history of diabetes, type 2, hypertension, hyperlipidemia, colon cancer . FAMILY HISTORY: Father had myocardial infarction. SOCIAL HISTORY: He smokes about a half-pack per day, and has smoked for at least 45 years. He live s independently. No alcohol or drug use. REVIEW OF SYSTEMS: Otherwise, a 10-point review of systems completed, unremarkable, except for that noted above. MEDICATIONS: He is currently taking aspirin, [place] as needed, insulin, lisinopril, meclizine, metfo rmin, ondansetron, Crestor. ALLERGIES: No allergies. PHYSICAL EXAM: VITAL SIGNS: The blood pressure is 160/84, pulse is 67, respirations 18, temperatur e 36.8. GENERAL: He is well developed, no acute distress. NECK: Supple. No bruits or masses. C ARDIAC: Regular rate and rhythm. No murmur. PSYCHIATRIC: He is alert and attentive, with clear a nd fluent speech and normal cognition. HEENT: Pupils are 3 mm and reactive. Extraocular movements are intact. Normal facial sensation and strength. NEUROLOGIC: Motor exam reveals normal muscle b ulk and tone, with 5/5 strength. No ataxia in the upper extremities, but he feels unsteady walking with the dizziness. LABORATORY DATA: In addition to the findings of multiple areas of probable ischemia, including supe rior cerebellar peduncle, he has had a contrasted study showing some mild enhancement of one of the lesions of uncertain significance, but not likely metastatic disease. Laboratory studies generally unremarkable, with LDL cholesterol of 63. He has some mild elevations of glucose. The MR angiogram of the head and neck are unremarkable. Routine echocardiogram is unremarkable, and ANSHUL is planned for tomorrow. The patient has an NIH Str shantel Scale of 1. IMPRESSION: Multiple small, acute ischemic strokes, likely accounting for this presentation. At th is point, my greatest concern would be a cardioembolic source, but small-vessel disease is possible. The bilateral distribution is what is so atypical for local thrombosis. This looks more like what we might see with a shower embolus. He does not have known atrial fibrillation, but will need cont inuous monitoring for that, and we need more thorough investigation with a transesophageal echocardi ogram. If all of this is negative, then we would probably recommend prolonged cardiac monitoring, a nd we will continue to work with Cardiology on this. For now, the treatment should continue with an tiplatelet therapy using aspirin. He is already taking a statin for secondary stroke prophylaxis, a nd treated for blood pressure and diabetes. Physical, occupational and speech therapy are appropria te to continue. Depending on his degree of clinical recovery, he may need rehab if he is not safe t o be discharged. /[id number]/MODL
[2016-11-15] MEDS ORDERED: NS 1,000 ML IV SCH (06:00)
[2016-11-15] MEDS: INSULIN LISPRO 100 UNIT/ML SC SCH ×3 (08:19→17:42)
[2016-11-15] MEDS: ROSUVASTATIN CALCIUM 10 MG TAB PO SCH (08:20)
[2016-11-15] MEDS: ENOXAPARIN 40 MG/0.4 ML SYR SC SCH (08:20)
[2016-11-15] MEDS: LISINOPRIL 20 MG TAB PO SCH (08:20)
[2016-11-15] MEDS: ASPIRIN 325 MG TAB PO SCH (08:20)
[2016-11-15] MEDS: hydrALAZINE 20 MG/ML VIAL IVP PRN (09:31)
--- NOTE | 2016-11-15 09:32 | NEUROPROG ---
Assessment: A total of 25 minutes of unit time was spent in udnc-oe-regn discussion and review of his case as well as planning for additional treatments. The patient has most likely multiple small embolic infarcts with a cardioembolic source currently suspected, even though we do not have a specific diagnosis for this. There are not large vessel stenoses. He has multiple risk factors. Aspirin remains appropriate for now. The transesophageal echocardiogram is pending. We will make further decisions based on those results, but he may be able to be discharged today and then have a more prolonged nuclear monitoring technician placed as outpatient or the time of discharge. Subjective: Edenilson is reporting that he has been doing relatively well overnight but continues to have rather profound dizziness when he tries to walk. He denies headache or fever or chills. Objective: Vital Signs Temp Pulse Resp BP Pulse Ox 36.7 C 68 15 182/96 H 93 11/15/16 07:45 11/15/16 07:45 11/15/16 07:45 11/15/16 07:45 11/15/16 07:45 11/14/16 11/15/16 11/16/16 05:59 05:59 05:59 Intake Total 500 900 Output Total 800 1200 Balance -300 -300 PT 13.9 SEC (12.0-15.0) 11/13/16 06:35 INR 1.08 (0.83-1.16) 11/13/16 06:35 No change in is examination and no new findings to report. Allergies/Adverse Reactions: No Known Allergies Allergy (Verified 11/12/16 19:10)
[2016-11-15] MEDS ORDERED: MIDAZOLAM 2 MG/2 ML VIAL ONE ×2 (10:32)
[2016-11-15] MEDS ORDERED: fentaNYL 100 MCG/2 ML INJ ONE (10:33)
--- NOTE | 2016-11-15 14:58 | HOSPPROG ---
Hospitalist Progress Note Assessment/Plan: # Acute/subacute cerebellar stroke - this is source of his dizziness, which is still rather severe with ambulation. Telemetry personally reviewed, no e/o A fib thus far, continue monitoring. -ANSHUL pending, sounds like it was neg for thrombus from pt report -cont asa, statin -will need outpt [facility] cardiac monitoring if no A fib identified here, d/ w cards, who will arrange -BP control as below -inpt rehab eval as pt unsafe to dc home # Uncontrolled hypertension - SBP was greater than 200 on presentation, goal < 140 with recent embolic stroke. SBP's still 170-180 despite up-titration of lisinopril to 40 mg daily yesterday -add low dose norvasc today # DM2 - bg's fairly well controlled. Hold MTF given recent contrast studies -recheck Cr tomorrow -SSI for bg control # HLD - Cont home statin # dispo: cont inpt, PT/OT # gen: cardiac/diabetic diet DVT ppx: lovenox FUll code Subjective: Pt feels okay at rest in bed, quite dizzy with ambulation, requiring walker, assistance. No CP or SOB. Objective: Vital Signs Temp Pulse Resp BP Pulse Ox 36.7 C 67 16 153/77 H 93 11/15/16 13:33 11/15/16 13:33 11/15/16 13:33 11/15/16 13:33 11/15/16 13:33 11/14/16 11/15/16 11/16/16 05:59 05:59 05:59 Intake Total 500 900 Output Total 800 1200 Balance -300 -300 PT 13.9 SEC (12.0-15.0) 11/13/16 06:35 INR 1.08 (0.83-1.16) 11/13/16 06:35 - Physical Exam Constitutional: no apparent distress Eyes: PERRL Ears, Nose, Mouth, Throat: moist mucous membranes Cardiovascular: regular rate and rhythym, no murmur, rub, or gallop Respiratory: no respiratory distress, clear to auscultation Gastrointestinal: normoactive bowel sounds, soft, non-tender abdomen Skin: warm Musculoskeletal: full muscle strength Neurologic: AAOx3 Psychiatric: interacting appropriately ICD10 Worksheet Patient Problems: Problems Problem Status Onset Near syncope Acute Stroke due to embolism Acute
--- NOTE | 2016-11-15 17:34 | ECHO ---
[id number] [id number] + + [address] : : [facility] [address] : : [phone] + + Transesophageal Echocardiographic Report + ---------+ :Name: JUDIT LMI TStudy Date: 11/15/2016 11:23 AM : : Hospital Admission Number: [id number] Loca tion: CVC: :: 1950 Gender: Male : :Age: 66 yrs Race: WH : :Reason For Study: Eval for Embolic Source : :History: CVA : + ---------+ Left Ventricle The left ventricle is normal in size. The left ventricular ejection fraction is normal. The left ventricular wall motion is normal. Right Ventricle The right ventricle is normal in size and function. Atria Injection of contrast documented no interatrial shunt. No left atrial mass or thrombus visualized. No thrombus is detected in the left atrial appendage. Right atrial size is normal. Mitral Valve The mitral valve is normal in structure and function. There is no evidence of mitral valve prolapse. There is no mitral valve stenosis. There is trace mitral regurgitation. Tricuspid Valve Normal tricuspid valve. There is trace tricuspid regurgitation. Aortic Valve The aortic valve is normal in structure and function. The aortic valve is trileaflet. There is no aortic stenosis. There is no aortic insufficiency. Pulmonic Valve The pulmonic valve is normal in structure and function. There is no pulmonic valvular regurgitation. Vessels There is mild to moderate atherosclerotic plaque(s) in the descending Aorta. Pericardium There is no pericardial effusion. Procedure With heart rate, blood pressure and oximetry monitered the patient was administered IV Versed, fentanyl and the bite block in place, the throat was anesthetized with topical spray. The [employer] transesophageal probe was passed without difficulty. Conclusion A 2D transesophageal echocardiogram with color flow Doppler was performed. The left ventricular ejection fraction is normal. The left ventricular wall motion is normal. The right ventricle is normal in size and function. No left atrial mass or thrombus visualized. No thrombus is detected in the left atrial appendage. The mitral valve is normal in structure and function. There is trace mitral regurgitation. There is trace tricuspid regurgitation. The aortic valve is normal in structure and function. The aortic valve is trileaflet. There is mild to moderate atherosclerotic plaque(s) in the descending Aorta. Injection of contrast documented no interatrial shunt. Final Reading Physician: Dr Roxanne Mcqueen electronically signed on 11/15/2016 05:33 PM Ordering Physician: Lazaro Cruz Performed By: Dr Roxanne Mcqueen
[2016-11-16 05:27] LABS: ANION GAP 9 mEq/L (8-16); CARBON DIOXIDE 22 mEq/l (22-31); CHLORIDE 106 mEq/L (97-110); CREATININE 0.8 mg/dL (0.7-1.3); GLOMERULAR FILTRATION RATE > 60; GLUCOSE 140 mg/dL (70-100); POTASSIUM 4.1 mEq/L (3.5-5.2); SODIUM 137 mEq/L (134-144)
[2016-11-16] MEDS: ROSUVASTATIN CALCIUM 10 MG TAB PO SCH (08:18)
[2016-11-16] MEDS: ENOXAPARIN 40 MG/0.4 ML SYR SC SCH (08:18)
[2016-11-16] MEDS: ASPIRIN 325 MG TAB PO SCH (08:18)
[2016-11-16] MEDS: LISINOPRIL 20 MG TAB PO SCH (08:18)
[2016-11-16] MEDS: INSULIN LISPRO 100 UNIT/ML SC SCH ×3 (08:42→17:39)
--- NOTE | 2016-11-16 13:51 | HOSPPROG ---
Hospitalist Progress Note Assessment/Plan: # Acute/subacute cerebellar stroke - this is source of his dizziness, which is still rather severe with ambulation and he will require inpt rehab. Telemetry personally reviewed, no e/o A fib thus far, continue monitoring. Neurology following, d/w Dr. Cruz. -ANSHUL neg for thrombus -cont asa, statin -will need outpt termite technician cardiac monitoring. [employer] has set this up , will mail to him. -BP control as below -Cont PT/OT # Uncontrolled hypertension - SBP was greater than 200 on presentation, goal < 140 with recent embolic stroke. Lisinopril doubled to 40 mg daily. -up-titrate Norvasc today # DM2 - bg's fairly well controlled. Holding MTF given recent contrast studies , Cr remains stable. -Resume MTF at md -[facility] for bg control while inpt # HLD - Cont statin # dispo: cont inpt. Accepted to inpatient rehab, awaiting insurance approval. Likely to d/c tomorrow. # DVT ppx: lovenox # Full code Subjective: Pt feels ok. Continues to have severe dizziness with ambulation, using a walker, assistance. No headaches, vision changes, CP or SOB. Objective: Vital Signs Temp Pulse Resp BP Pulse Ox 36.6 C 72 14 150/75 H 94 11/16/16 12:00 11/16/16 12:00 11/16/16 12:00 11/16/16 12:00 11/16/16 12:00 Laboratory Results 11/16/16 04:37 11/15/16 11/16/16 11/17/16 05:59 05:59 05:59 Intake Total 900 350 Output Total 1200 1000 Balance -300 -650 PT 13.9 SEC (12.0-15.0) 11/13/16 06:35 INR 1.08 (0.83-1.16) 11/13/16 06:35 - Physical Exam Constitutional: no apparent distress Eyes: PERRL Ears, Nose, Mouth, Throat: moist mucous membranes Cardiovascular: regular rate and rhythym, no murmur, rub, or gallop Respiratory: no respiratory distress, clear to auscultation Gastrointestinal: normoactive bowel sounds, soft, non-tender abdomen Skin: warm Musculoskeletal: full muscle strength Neurologic: AAOx3, CN II-XII Intact Psychiatric: interacting appropriately ICD10 Worksheet Patient Problems: Problems Problem Status Onset Near syncope Acute Stroke due to embolism Acute
[2016-11-17 04:45] VITALS: RESP 20
[2016-11-17 07:33] VITALS: PULSE 61
[2016-11-17] MEDS: INSULIN LISPRO 100 UNIT/ML SC SCH ×2 (08:51→11:12)
[2016-11-17] MEDS: ENOXAPARIN 40 MG/0.4 ML SYR SC SCH (08:57)
[2016-11-17] MEDS: LISINOPRIL 20 MG TAB PO SCH (08:57)
[2016-11-17] MEDS: ASPIRIN 325 MG TAB PO SCH (08:58)
[2016-11-17] MEDS: ROSUVASTATIN CALCIUM 10 MG TAB PO SCH (08:58)
--- NOTE | 2016-11-17 10:52 | PDIAF ---
- Diagnosis Diagnosis: CVA Code Status: Full Code - Medication Management Discharge Medications: Medications to Continue on Transfer Aspirin [Aspirin 325 mg (*)] 325 mg PO DAILY 11/12/16 [Last Taken 11/12/16] Lisinopril [Zestril 10 mg (*)] 20 mg PO DAILY 11/12/16 [Last Taken 11/12/16] Rosuvastatin Calcium [Crestor] 10 mg PO DAILY 11/12/16 [Last Taken 11/12/16] metFORMIN HCL [Glucophage 500 mg (*)] 500 mg PO BIDMEAL 11/12/16 [Last Taken 12/24 FIRST DOSE] Acetaminophen [Tylenol 325mg (*)] 650 mg PO Q4HRS PRN #0 tab 11/17/16 [Last Taken Unknown] Enoxaparin [Lovenox 40 MG (*)] 40 mg SC DAILY syr 11/17/16 [Last Taken Unknown] Lisinopril [Zestril 20 mg (*)] 40 mg PO DAILY tab 11/17/16 [Last Taken Unknown] Ondansetron Odt [Zofran Odt 4 mg (*)] 4 mg PO Q4HRS PRN #0 tab 11/17/16 [Last Taken Unknown] amLODIPine BESYLATE [Norvasc 2.5 mg (*)] 5 mg PO DAILY tab 11/17/16 [Last Taken Unknown] Discharge Medications: Refer to the Discharge Home Medication list for PRN reason. PICC Care - Routine: N/A - Orders Services needed: Registered Nurse, Physical Therapy, Occupational Therapy, Speech Language Pathologist - Follow Up Care Current Providers and Referrals: Patient,NotPresent [Unknown] - As per Instructions
[2016-11-17 11:33] VITALS: BP 153/78; TEMP 97.9; O2SAT 93
--- NOTE | 2016-11-17 14:40 | GDS ---
[f rep st] DISCHARGE SUMMARY DISCHARGE DIAGNOSES: 1. Acute subacute cerebellar stroke. 2. Uncontrolled hypertension. 3. Diabetes mellitus type 2. 4. Hyperlipidemia. CONSULTATIONS: Neurology. STUDIES AND PROCEDURES DONE: 1. CT of the head. 2. Echocardiogram. 3. MRI of the brain. 4. Repeat MRI of the brain. 5. MRI of the head and neck. 6. Transesophageal echocardiogram. PHYSICAL EXAM: GENERAL: The patient was alert. VITAL SIGNS: Afebrile at 36.6, pulse of 61, respirat ory rate 20, blood pressure was 153/78. He was saturating 93% on room air. I have seen and evaluated the patient on the day of discharge. HOSPITAL COURSE: 1. The patient is a 66-year-old male who presented to the emergency room with complaints of dizzine ss. He was evaluated and diagnosed with acute and subacute cerebellar stroke. During this hospitaliz ation, he received a consultation from Dr. Cruz of neurology. A thorough workup, including ANSHUL, as well as MRA and MRI, were performed during this hospitalization. The etiology of his stroke was unclear at the time of disposition. He will require an outpatient heart monitor, and that has been a rranged by [facility]. He will continue on aspirin as well as statin and require further rehabili tation for his acute event. 2. Uncontrolled hypertension. This was controlled with antihypertensive medications. His doses were substantially increased, and he will require close monitoring in the outpatient setting. 3. Diabetes mellitus type 2. Patient's metformin has been re-initiated. He will continue sliding sc alexandre insulin, and will follow with his primary care physician. 4. Hyperlipidemia. Statin therapy is continued at the time of disposition. DISCHARGE DISPOSITION: The patient will be discharged to inpatient rehabilitation for further thera py and strengthening. There are no pending studies. DISCHARGE MEDICATIONS: Please refer to EMR form. FOLLOWUP: With Dr. Cruz as well as inpatient rehabilitation physician. I have spent greater than 35 minutes in the care, coordination, and management of this patient's dis charge. /[id number]/MODL
== END 2016-11-17 13:48 | DRG 66 ==
LOC: EDUNIT# → F2W 23:43 → OBSVTOIN 11-13 14:26 → F3N 11-14 17:59
PROVIDERS: ADMIT Internal Medicine; ATTEND Hospitalist
DX: I63.9 Cerebral infarction, unspecified (principal); I10 Essential (primary) hypertension; E11.9 Type 2 diabetes mellitus without complications; E78.5 Hyperlipidemia, unspecified; F17.210 Nicotine dependence, cigarettes, uncomplicated; Z85.038 Personal history of other malignant neoplasm of large intestine
CPT/HCPCS: 97112-GP; 97116-GP; 97161-GP; 97165-GO; 97535-GO; A9585; G0378; G8978-GP-CJ; G8979-GP-CI; G8987-GO-CK; G8988-GO-CI; J0360; J1650; J1815; J2250; J3010

== ENCOUNTER 2016-11-16 11:05 | Inpatient (IN) | payer BC, OTHER ==
[2016-11-17] MEDS ORDERED: ONDANSETRON DISINTEGRATING 4 MG TAB PO PRN (15:05)
[2016-11-17] MEDS ORDERED: ACETAMINOPHEN 325 MG TAB PO PRN (15:05)
[2016-11-17] MEDS ORDERED: MAGNESIUM HYDROXIDE 30 ML UDCUP PO PRN (15:16)
[2016-11-17] MEDS ORDERED: MAG HYDROX/AL HYDROX/SIMETH 30 ML UDCUP PO PRN (15:16)
[2016-11-17] MEDS ORDERED: BISACODYL 10 MG SUPP PR PRN (15:16)
[2016-11-17] MEDS ORDERED: POLYETHYLENE GLYCOL 3350 17 GM PKT PO PRN (15:16)
--- NOTE | 2016-11-17 16:36 | GHP ---
[f rep st] HISTORY AND PHYSICAL POST ADMISSION PHYSICIAN EVALUATION AND REHABILITATION TREATMENT PLAN DATE OF ADMISSION: 11/17/2016 REFERRING FACILITY: [facility]. REFERRING PHYSICIAN: Ayad Mullen MD IMPAIRMENT GROUP: 3.1. DATE OF ONSET: 11/12/2016. REHABILITATION DIAGNOSES: 1. Weakness and debility secondary to recent cerebellar infarct. 2. Vertigo. 3. Hypertension. 4. Diabetes. ETIOLOGIC DIAGNOSIS: Cerebrovascular accident. HISTORY OF PRESENT ILLNESS: The patient is a 66-year-old male who was in reasonably good health until about 3 weeks ago when he states he experienced a minor stroke which resulted in some dizziness prompting admission to [facility]. He states that he was discharged to home, and approximately 2 weeks later had another episode where he became weak and dizzy. He was re-admitted to [facility] on 12/2016 with complaints of dizziness, decreased balance, and blurred vision. He was found to have uncontrolled hypertension with systolic blood pressure greater than 200. Head CT showed shower emboli as source of infarct along with chronic lacunar infarcts seen on brain MRI as well as recent right cerebellar infarct and left occipital lobe infarct. Additional workup, including EKG, showed normal sinus rhythm, transesophageal echocardiogram was reported as WNL. Cardiac echo showed ejection fraction of 73%. Head MRA was negative. Neck MRA showed no evidence of flow stenosis of the carotids or vertebral arteries. He was stabilized and started in physical and occupational therapy which he states he was participating with much difficulty. He does report positional vertigo, particularly when going from supine to sit and sit to stand. He does not report specific upper or lower extremity weakness. He was seen by the cardiology service, and a Holter monitor has been ordered. We are currently arranging for this to be shipped to the hospital and he is to wear it for several days. He was felt stable for transfer to inpatient rehab at the [facility]. Other than his complaints of dizziness, he does not have any other complaints, including diplopia, blurred vision, or specific upper or lower extremity weakness. He denies bowel/bladder incontinence. He denies dysuria. He denies shortness of breath, chest pain, or other anginal-like symptoms. He reports he has had a bowel movement in the past few days. Lab studies during recent hospitalization include sodium of 137, potassium 4.1, BUN 22, creatinine 0.8. White blood count 10.9. Hemoglobin/hematocrit 15/ 40.6. Cholesterol 125. HDL 42, LDL 63. PRECAUTIONS: He is a fall risk due to dizziness secondary to vertebral infarct. ACTIVE COMORBIDITIES: Hypertension, diabetes. PAST MEDICAL HISTORY: Includes type 2 diabetes; hypertension; hyperlipidemia; colon cancer, status post resection with partial colectomy. No history of previous falls. SOCIAL HISTORY: 22 pack-year history tobacco. Denies illicit drug use. Denies alcohol use. PAST SURGICAL HISTORY: As per HPI. CURRENT MEDICATIONS: Lisinopril 40 mg daily, Crestor 10 mg p.o. q.a.m., metformin 500 b.i.d., Zofran 4 mg p.o. q.4 hours p.r.n. nausea, aspirin 325 one p.o. daily, amlodipine 5 mg p.o. daily, Lovenox 40 mg subcutaneous daily, Tylenol 325 one to two p.o. q.4 hours p.r.n. pain. ALLERGIES: No known drug allergies. PRIOR FUNCTIONING LEVEL: He states he was living alone independently in 3rd- story apartment. Reports full independence in self-care, mobility, stairs, and functional cognition. 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 Hobbies include movies, reading, and walking. FAMILY HISTORY: Noncontributory. REVIEW OF SYSTEMS: Covered in HPI, otherwise noncontributory. PHYSICAL EXAMINATION: VITALS: Blood pressure 142/82, pulse 64 and regular, respirations 16. No supplemental oxygen. GENERAL: WD, WN, slightly overweight male, NAD. PSYCH: Alert and oriented x3. Pleasant, cooperative, and appropriate. HEENT: Pupils equal, round, reactive to light and accommodation. Extraocular movements intact. Normal visual tracking in all mena. Dentition: He is missing his 2 front teeth and has a plate for this. Oral mucosa is moist and without lesions. NECK: Supple. CARDIOVASCULAR: Regular rate and rhythm without murmurs, rubs, and gallops. No lower extremity edema. Normal capillary refill both lower extremities. LUNGS: Clear to auscultation. ABDOMEN: Soft, nontender. Normoactive bowel sounds all 4 quadrants. EXTREMITIES: All 4 extremities are warm. No cyanosis. Radial pulses normal and symmetric. Dorsalis pedis pulses easily palpated. NEUROLOGIC : Cranial nerves 2-12 grossly intact. Grossly normal upper and lower extremity motor exam. No pronator drift. Upper and lower extremity sensory exam is intact to light touch. CURRENT LEVEL OF FUNCTION PER PREADMISSION SCREEN: Diet: He is on regular diet , thin liquids. He is continent of both bowel and bladder. Bed mobility: Standby assist to independent. Transfers: Contact guard with WBOS requiring contact guard to steady. Equipment: FWW. Balance: Sitting, independent standing, static contact guard to min assist standing. Dynamic mod assist. Endurance: Good. Gait: Contact guard to min assist with FWW x 150 feet. Patient with WBOS with increased lean to left. Ambulates 100 feet with mod assist and VC with decreased disassociation, WBOS, decreased stride on right, decreased weight shift on the left. Stairs: To be determined. Communication: Not impaired. Cognition: Not impaired. Safety precautions: He is fall risk. Lower extremity strength/range of motion: WFL. Upper extremity strength/range of motion: WFL. FUNCTIONAL COMMENTS: Left-hand dominant patient with complaint of blurred vision in the right eye. ASSESSMENT/PLAN: 1. Status post cerebellar cerebrovascular accident with gait dysfunction secondary to dizziness. Probable secondary ataxia secondary to this. Patient will have physical therapy for lower extremity strengthening, gait training with compensatory techniques if needed, and use of assistive devices as deemed necessary. Physical and Occupational Therapy will work in concert for trunk stability and transfer training. Occupational therapy for upper extremity strengthening and cor stability. 2. Dizziness: As indicated above. This is secondary to cerebellar cerebrovascular accident, and therefore he will need compensatory strategies to help minimize this along with gait and safety training. 3. Cognitive impairment: Speech therapy to evaluate for speech and language pathology. 4. Hypertension. Reviewed med list, and it looks like his lisinopril was recently increased to 40 mg daily. Daily blood pressure checks, and adjust blood pressure medications as deemed necessary. 5. Type 2 diabetes. Daily fingersticks. Glucophage 500 twice a day. Also on sliding scale insulin. 6. Dyslipidemia: Crestor [address] on low-fat, low-salt, 1800- calorie diet. 7. Deep vein thrombosis prophylaxis: Lovenox 40 mg subcutaneous daily. Aspirin 325 by mouth daily. 8. Pain management. Acetaminophen 325 one to two by mouth every 4 hours as needed pain. 9. Bowel/bladder management: Patient reports he is fully continent of bowel and bladder. He denies constipation. Will have bowel protocol in place for constipation. /[id number]/MODL MTDD
[2016-11-17] MEDS: metFORMIN HCL 500 MG TAB PO SCH (17:26)
[2016-11-17] MEDS: SENNOSIDES/DOCUSATE SODIUM TAB PO SCH (21:00)
[2016-11-18 08:03] LABS: ANION GAP 8 mEq/L (8-16); CARBON DIOXIDE 23 mEq/l (22-31); CHLORIDE 106 mEq/L (97-110); CREATININE 0.7 mg/dL (0.7-1.3); GLOMERULAR FILTRATION RATE > 60; GLUCOSE 129 mg/dL (70-100); POTASSIUM 4.5 mEq/L (3.5-5.2); SODIUM 137 mEq/L (134-144)
[2016-11-18] MEDS: metFORMIN HCL 500 MG TAB PO SCH ×2 (08:38→18:17)
[2016-11-18] MEDS: ROSUVASTATIN CALCIUM 10 MG TAB PO SCH (08:39)
[2016-11-18] MEDS: ASPIRIN 325 MG TAB PO SCH (08:39)
[2016-11-18] MEDS: LISINOPRIL 20 MG TAB PO SCH (08:39)
[2016-11-18] MEDS: ENOXAPARIN 40 MG/0.4 ML SYR SC SCH (08:39)
[2016-11-18] MEDS: SENNOSIDES/DOCUSATE SODIUM TAB PO SCH ×2 (08:39→21:47)
--- NOTE | 2016-11-18 09:53 | SOAPPROG ---
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 Physical therapy for lower extremity strengthening, gait training with compensatory techniques if needed, and use of assistive devices as deemed necessary. Physical and Occupational Therapy will work in concert for trunk stability and transfer training. Occupational therapy for upper extremity strengthening and cor stability. * Dizziness: As indicated above. This is secondary to cerebellar cerebrovascular accident, and therefore he will need compensatory strategies to help minimize this along with gait and safety training. * Cognitive impairment: Speech therapy to evaluate for speech and language pathology. * Embolic source. Awaitin Holter monitor to assess for occult AFib. * Hypertension. Lisinopril was recently increased to 40 mg daily. Daily blood pressure checks, and adjust blood pressure medications as deemed necessary. * Type 2 diabetes. Daily fingersticks. Increase metformin from 500 twice a day 10 1000 mg BID. Also on sliding scale insulin. Consider second oral hypoglycemic. Dietary consult. * Dyslipidemia: Crestor [address] on low-fat, low-salt, 1800- calorie diet. * Deep vein thrombosis prophylaxis: Lovenox 40 mg subcutaneous daily. Aspirin 325 by mouth daily. * Pain management. Acetaminophen 325 one to two by mouth every 4 hours as needed pain. * Bowel/bladder management: Patient reports he is fully continent of bowel and bladder. He denies constipation. Will have bowel protocol in place for constipation. 11/18/16 10:32 Subjective: Has feeling of balance impairment. Denies spinning sensation; more like on the deck of a boat. No N/V. Worse when standing.. No f/c, cough/dyspnea. Objective: Vital Signs Temp Pulse Resp BP Pulse Ox 36.7 C 62 16 152/93 H 94 11/18/16 06:26 11/18/16 06:26 11/18/16 06:26 11/18/16 06:26 11/18/16 06:26 Laboratory Results 11/18/16 06:15 11/17/16 11/18/16 11/19/16 05:59 05:59 05:59 Intake Total 200 240 Output Total 250 Balance -50 240 Physical Exam - Physical Exam General Appearance: WD/WN, alert, no apparent distress Respiratory: normal breath sounds, No crackles, No rhonchi, No wheezing Cardiac/Chest: regular rate, rhythm, No edema Skin: normal color, warm/dry Neuro/Psych: no motor/sensory deficits, alert, normal mood/affect, oriented x 3 ICD10 Worksheet Patient Problems: Problems Problem Status Onset Near syncope Acute Stroke due to embolism Acute
--- NOTE | 2016-11-18 10:48 | PDOREHIP ---
Admission [facility] - Admission - 3 Day Assessment Period Admission Date/Day 1: 11/17/16 Day 2: 11/18/16 Day 3: 11/19/16 - Active Diagnoses Comorbidities and Co-existing Conditions at Admission: 94476. DM (e.g. diabetic retinopathy, nephropathy, and neuropathy) - Skin Conditions Unhealed Pressure Ulcer (1 or more/Stage 1 or >)-Admission: 0. No
[2016-11-19] MEDS: SENNOSIDES/DOCUSATE SODIUM TAB PO SCH ×2 (08:06→22:05)
[2016-11-19] MEDS: LISINOPRIL 20 MG TAB PO SCH (08:08)
[2016-11-19] MEDS: metFORMIN HCL 500 MG TAB PO SCH ×2 (08:08→18:15)
[2016-11-19] MEDS: ROSUVASTATIN CALCIUM 10 MG TAB PO SCH (08:08)
[2016-11-19] MEDS: ASPIRIN 325 MG TAB PO SCH (08:08)
[2016-11-19] MEDS: ENOXAPARIN 40 MG/0.4 ML SYR SC SCH (08:09)
--- NOTE | 2016-11-19 16:15 | SOAPPROG ---
SOAP Progress Note Assessment/Plan: * Status post R occipital and L cerebellar cerebellar embolic CVA 11/13/16 with gait dysfunction/ataxia secondary to dizziness. Physical therapy for lower extremity strengthening, gait training with compensatory techniques if needed, and use of assistive devices as deemed necessary. Physical and Occupational Therapy will work in concert for trunk stability and transfer training. Occupational therapy for upper extremity strengthening and cor stability. * Dizziness: As indicated above. This is secondary to cerebellar cerebrovascular accident, and therefore he will need compensatory strategies to help minimize this along with gait and safety training. * Cognitive impairment: Speech therapy to evaluate for speech and language pathology. * Embolic source. Awaiting Holter monitor to assess for occult AFib. * Hypertension. Lisinopril was recently increased to 40 mg daily. Daily blood pressure checks, and adjust blood pressure medications as deemed necessary. * Type 2 diabetes. Daily fingersticks. Increase metformin from 500 twice a day 10 1000 mg BID. Also on sliding scale insulin. Consider second oral hypoglycemic. Dietary consult. * Dyslipidemia: Crestor [address] on low-fat, low-salt, 1800- calorie diet. * Deep vein thrombosis prophylaxis: Lovenox 40 mg subcutaneous daily. Aspirin 325 by mouth daily. * Pain management. Acetaminophen 325 one to two by mouth every 4 hours as needed pain. * Bowel/bladder management: Patient reports he is fully continent of bowel and bladder. He denies constipation. Will have bowel protocol in place for constipation. Subjective: No events. Ongoing balance difficulties but no nausea/emesis. Denies pain. Objective: Vital Signs Temp Pulse Resp BP Pulse Ox 36.7 C 63 18 149/79 H 93 11/19/16 08:00 11/19/16 08:00 11/19/16 08:00 11/19/16 08:08 11/19/16 08:00 Laboratory Results 11/18/16 06:15 11/18/16 11/19/16 11/20/16 05:59 05:59 05:59 Intake Total 200 1370 336 Output Total 250 Balance -50 1370 336 - Pending Discharge Pending Discharge Within 24 Hours: No Pending Discharge Within 48 Hours: No Physical Exam - Physical Exam General Appearance: alert, no apparent distress Neck: supple Respiratory: lungs clear, normal breath sounds Cardiac/Chest: regular rate, rhythm Abdomen: normal bowel sounds, non-tender, soft Skin: warm/dry Neuro/Psych: alert, normal mood/affect, oriented x 3, No speech abnormalities ICD10 Worksheet Patient Problems: Problems Problem Status Onset Near syncope Acute Stroke due to embolism Acute
[2016-11-20] MEDS: LISINOPRIL 20 MG TAB PO SCH (07:06)
[2016-11-20] MEDS: ENOXAPARIN 40 MG/0.4 ML SYR SC SCH (07:07)
[2016-11-20] MEDS: ASPIRIN 325 MG TAB PO SCH (07:07)
[2016-11-20] MEDS: metFORMIN HCL 500 MG TAB PO SCH ×2 (07:55→17:31)
[2016-11-20] MEDS: SENNOSIDES/DOCUSATE SODIUM TAB PO SCH ×2 (08:34→19:46)
[2016-11-20] MEDS: ROSUVASTATIN CALCIUM 10 MG TAB PO SCH (08:51)
--- NOTE | 2016-11-20 09:34 | SOAPPROG ---
SOAP Progress Note Assessment/Plan: * Status post R occipital and L cerebellar cerebellar embolic CVA 11/13/16 with gait dysfunction/ataxia secondary to dizziness. Physical therapy for lower extremity strengthening, gait training with compensatory techniques if needed, and use of assistive devices as deemed necessary. Physical and Occupational Therapy will work in concert for trunk stability and transfer training. Occupational therapy for upper extremity strengthening and cor stability. * Dizziness: As indicated above. This is secondary to cerebellar cerebrovascular accident, and therefore he will need compensatory strategies to help minimize this along with gait and safety training. * Cognitive impairment: Speech therapy to evaluate for speech and language pathology. * Embolic source. Awaiting Holter monitor to assess for occult AFib. * Hypertension. Lisinopril was recently increased to 40 mg daily. Daily blood pressure checks, and adjust blood pressure medications as deemed necessary. * Type 2 diabetes. Daily fingersticks. Increase metformin from 500 twice a day 10 1000 mg BID. Also on sliding scale insulin. Consider second oral hypoglycemic. Dietary consult. * Dyslipidemia: Crestor [address] on low-fat, low-salt, 1800- calorie diet. * Deep vein thrombosis prophylaxis: Lovenox 40 mg subcutaneous daily. Aspirin 325 by mouth daily. * Pain management. Acetaminophen 325 one to two by mouth every 4 hours as needed pain. * Bowel/bladder management: Patient reports he is fully continent of bowel and bladder. He denies constipation. Will have bowel protocol in place for constipation. Subjective: No events. Slept well overnight. No complaints this a.m. Doing well and notes improving balance. Denies ZAVALA, chills. Objective: Vital Signs Temp Pulse Resp BP Pulse Ox 36.8 C 63 16 128/86 H 94 11/20/16 05:22 11/20/16 05:22 11/20/16 05:22 11/20/16 07:07 11/20/16 05:22 Laboratory Results 11/18/16 06:15 11/19/16 11/20/16 11/21/16 05:59 05:59 05:59 Intake Total 1370 1072 Balance 1370 1072 - Pending Discharge Pending Discharge Within 24 Hours: No Pending Discharge Within 48 Hours: No Physical Exam - Physical Exam General Appearance: alert, no apparent distress Neck: supple Respiratory: lungs clear, normal breath sounds Cardiac/Chest: regular rate, rhythm Abdomen: normal bowel sounds, non-tender, soft, hernia Skin: warm/dry Neuro/Psych: alert, normal mood/affect, oriented x 3, No cognition abnormalities , No speech abnormalities ICD10 Worksheet Patient Problems: Problems Problem Status Onset Near syncope Acute Stroke due to embolism Acute
[2016-11-21] MEDS: ENOXAPARIN 40 MG/0.4 ML SYR SC SCH (07:15)
[2016-11-21] MEDS: LISINOPRIL 20 MG TAB PO SCH (07:15)
[2016-11-21] MEDS: ASPIRIN 325 MG TAB PO SCH (07:16)
[2016-11-21] MEDS: ROSUVASTATIN CALCIUM 10 MG TAB PO SCH (07:16)
[2016-11-21] MEDS: SENNOSIDES/DOCUSATE SODIUM TAB PO SCH ×2 (07:16→20:47)
[2016-11-21] MEDS: metFORMIN HCL 500 MG TAB PO SCH ×2 (08:48→17:18)
--- NOTE | 2016-11-21 09:52 | SOAPPROG ---
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 Physical therapy for lower extremity strengthening, gait training with compensatory techniques if needed, and use of assistive devices as deemed necessary. Physical and Occupational Therapy will work in concert for trunk stability and transfer training. Occupational therapy for upper extremity strengthening and cor stability. * Dizziness: Due to cerebellar cerebrovascular accident, and therefore he will need compensatory strategies to help minimize this along with gait and safety training. * Cognitive impairment: Speech therapy to evaluate for speech and language pathology. * Embolic source. Holter monitor is in place to assess for occult AFib. Continue ASA. * Hypertension. Adequate control. Lisinopril was recently increased to 40 mg daily. Continues on amlodipine 5 mg QD. * Type 2 diabetes. Glycemic control improved with increase of metformin from 500 twice a day to 1000 mg BID on 11/18/16. Also on sliding scale insulin. Dietary consult. * Dyslipidemia: Crestor [address] on low-fat, low-salt, 1800- calorie diet. * Deep vein thrombosis prophylaxis: Ambulating 500'. Will d/c enoxaparin starting 11/22/16. * Pain management. Acetaminophen 325 one to two by mouth every 4 hours as needed pain. * Bowel/bladder management: Patient reports he is fully continent of bowel and bladder. He denies constipation. Will have bowel protocol in place for constipation. 11/21/16 09:49 Subjective: Still c/o dizziness, no vertigo, more feeling unbalanced. O/W w/out complaints. Sleeping well, no cough/dyspnea, no f/c. Objective: Vital Signs Temp Pulse Resp BP Pulse Ox 36.4 C 63 16 134/78 H 93 11/21/16 09:17 11/21/16 09:17 11/21/16 09:17 11/21/16 09:17 11/21/16 09:17 Laboratory Results 11/18/16 06:15 11/20/16 11/21/16 11/22/16 05:59 05:59 05:59 Intake Total 1072 776 240 Balance 1072 776 240 - Time Spent With Patient Time Spent With Patient: Greater than 35 minutes floor time today, including more than 50% of time in coordination of care during staffing meeting, and counseling patient. Physical Exam - Physical Exam General Appearance: WD/WN, alert, no apparent distress Respiratory: normal breath sounds, wheezing (Expiratory RLL), No crackles, No rhonchi Cardiac/Chest: regular rate, rhythm, No edema Skin: normal color, warm/dry Neuro/Psych: no motor/sensory deficits, alert, normal mood/affect, oriented x 3 ICD10 Worksheet Patient Problems: Problems Problem Status Onset Near syncope Acute Stroke due to embolism Acute
[2016-11-22] MEDS: LISINOPRIL 20 MG TAB PO SCH (08:35)
[2016-11-22] MEDS: metFORMIN HCL 500 MG TAB PO SCH ×2 (08:36→17:01)
[2016-11-22] MEDS: ROSUVASTATIN CALCIUM 10 MG TAB PO SCH (08:36)
[2016-11-22] MEDS: SENNOSIDES/DOCUSATE SODIUM TAB PO SCH ×2 (08:36→22:06)
[2016-11-22] MEDS: ASPIRIN 325 MG TAB PO SCH (08:36)
--- NOTE | 2016-11-22 10:58 | SOAPPROG ---
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 Physical therapy for lower extremity strengthening, gait training with compensatory techniques if needed, and use of assistive devices as deemed necessary. 11/22/2016- dizziness maybe partially due to stroke, partially due to orthostasis. Described as lightheadedness on 11/22, but may have component of vertigo reported by others. Checking orthostatics, encouraged PO fluids, and work with PT/OT on compensation strategies for vertigo component. Otherwise neurologically stable and improving. Monitor and continue rehab plan. 20 min was spent on the floor in the care of the patient, the majority was spent in the counseling and coordination of care regarding possible etiologies of dizziness. * Impairments: Physical and Occupational Therapy will work in concert for trunk stability and transfer training. Occupational therapy for upper extremity strengthening and cor stability. Initial FIM 92 on 11/21/16. Walked 300' with trekking pole. Did 18 stairs 1 rail SBA, Independent in room as of today . 24/30 on MOCA, though may be confounded by visual issues including R cataract and visual processing deficit. * Dizziness: maybe partially due to stroke, partially due to orthostasis. Described as lightheadedness on 11/22, but may have component of vertigo reported by others. Checking orthostatics, encouraged PO fluids, and work with PT/OT on compensation strategies for vertigo component. * Cognitive impairment: Speech therapy to evaluate for speech and language pathology. * Embolic source. Holter monitor is in place to assess for occult AFib. Continue ASA. * Hypertension. Adequate control. Lisinopril was recently increased to 40 mg daily. Continues on amlodipine 5 mg QD. * Type 2 diabetes. Glycemic control improved with increase of metformin from 500 twice a day to 1000 mg BID on 11/18/16. Also on sliding scale insulin. Dietary consult. * Dyslipidemia: Crestor [address] on low-fat, low-salt, 1800- calorie diet. * Deep vein thrombosis prophylaxis: Ambulating 500'. Will d/c enoxaparin starting 11/22/16. * Pain management. Acetaminophen 325 one to two by mouth every 4 hours as needed pain. * Bowel/bladder management: Patient reports he is fully continent of bowel and bladder. He denies constipation. Will have bowel protocol in place for constipation. No local family. Plan for discharge home on 11/24/16. 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 Follow-up PCP Fatoumata Beal and Neurologist Dr. Redding. 11/22/16 10:53 Subjective: CC: dizziness, neuro stability No acute events overnight. Pt participating well in therapies, notes some dizziness described as lightheadedness on standing, less "room spinning", has occurred since stroke most recently. Endorses good po fluid intake, encouraged to do safe stands and take additional PO fluids. No new numbness, tingling, or weakness, sleeping well, no new concerns. Objective: Vital Signs Temp Pulse Resp BP Pulse Ox 36.8 C 69 17 127/71 H 94 11/22/16 09:02 11/22/16 09:02 11/22/16 09:02 11/22/16 09:02 11/21/16 20:00 Laboratory Results 11/18/16 06:15 11/21/16 11/22/16 11/23/16 05:59 05:59 05:59 Intake Total 776 720 240 Balance 776 720 240 Physical Exam - Physical Exam General Appearance: alert, no apparent distress EENT: No scleral icterus (R), No scleral icterus (L) Respiratory: lungs clear, normal breath sounds, No respiratory distress, No accessory muscle use Cardiac/Chest: normal peripheral pulses, regular rate, rhythm, No edema Abdomen: non-tender, soft Skin: normal color, warm/dry Extremities: No pedal edema, No swelling Neuro/Psych: alert, normal mood/affect ICD10 Worksheet Patient Problems: Problems Problem Status Onset Near syncope Acute Stroke due to embolism Acute
[2016-11-22 21:40] VITALS: RESP 16
[2016-11-23] MEDS: metFORMIN HCL 500 MG TAB PO SCH ×2 (08:11→18:03)
[2016-11-23] MEDS: LISINOPRIL 20 MG TAB PO SCH (08:27)
[2016-11-23] MEDS: ASPIRIN 325 MG TAB PO SCH (08:27)
[2016-11-23] MEDS: ROSUVASTATIN CALCIUM 10 MG TAB PO SCH (08:28)
[2016-11-23] MEDS: SENNOSIDES/DOCUSATE SODIUM TAB PO SCH ×2 (08:28→19:47)
--- NOTE | 2016-11-23 13:50 | PDOREHIP ---
Admission [facility] - Admission - 3 Day Assessment Period Admission Date/Day 1: 11/17/16 Day 2: 11/18/16 Day 3: 11/19/16 Discharge [facility] - Discharge - 3 Day Assessment Period 2 Days Prior to Anticipated Discharge Date: 11/22/16 1 Day Prior to Anticipated Discharge Date: 11/23/16 Anticipated Discharge Date: 11/24/16 - Discharge Skin Conditions Unhealed Pressure Ulcer (1 or more/Stage 1 or >)-Discharge: 0. No
--- NOTE | 2016-11-23 13:50 | SOAPPROG ---
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 Initial FIM 92 on 11/21/16. Walked 300' with trekking pole. Did 18 stairs 1 rail SBA, Independent in room as of 11/21/16. 24/30 on MOCA, though may be confounded by visual issues including R cataract and visual processing deficit. * Dizziness: Due to cerebellar cerebrovascular accident, and therefore he will need compensatory strategies to help minimize this along with gait and safety training. * Cognitive impairment: Per speech and language pathology. * Embolic source. Holter monitor is in place to assess for occult AFib. Continue ASA. Follow-up with Cardiology. * Hypertension. Adequate control. Lisinopril was recently increased to 40 mg daily. Continues on amlodipine 5 mg QD. * Type 2 diabetes. Glycemic control improved with increase of metformin from 500 twice a day to 1000 mg BID on 11/18/16. Also on sliding scale insulin. Dietary consult. * Dyslipidemia: Crestor [address] on low-fat, low-salt, 1800- calorie diet. * Deep vein thrombosis prophylaxis: Ambulating 500'. Will d/c enoxaparin starting 11/22/16. * Pain management. Acetaminophen 325 one to two by mouth every 4 hours as needed pain. * Bowel/bladder management: Patient reports he is fully continent of bowel and bladder. He denies constipation. Will have bowel protocol in place for constipation. No local family. Plan for discharge home on 11/24/16. 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 Follow-up PCP Fatoumata Beal and Neurologist Dr. Cruz. Follow-up [facility] heart rhythm monitor. 11/23/16 13:46 Subjective: Still with dizziness; not spinning but like on the deck of a ship. No n/v. Ready to go home. Objective: Vital Signs Temp Pulse Resp BP Pulse Ox 36.6 C 63 16 130/67 H 94 11/23/16 07:52 11/23/16 07:52 11/23/16 07:52 11/23/16 08:27 11/23/16 07:52 Laboratory Results 11/18/16 06:15 11/22/16 11/23/16 11/24/16 05:59 05:59 05:59 Intake Total 720 880 250 Balance 720 880 250 Physical Exam - Physical Exam General Appearance: WD/WN, alert, no apparent distress Respiratory: No respiratory distress, No accessory muscle use Skin: normal color, warm/dry Neuro/Psych: alert, normal mood/affect, oriented x 3 ICD10 Worksheet Patient Problems: Problems Problem Status Onset Near syncope Acute Stroke due to embolism Acute
[2016-11-24 06:35] VITALS: TEMP 97.6; O2SAT 96
[2016-11-24] MEDS: metFORMIN HCL 500 MG TAB PO SCH (08:27)
[2016-11-24] MEDS: ROSUVASTATIN CALCIUM 10 MG TAB PO SCH (08:28)
[2016-11-24] MEDS: SENNOSIDES/DOCUSATE SODIUM TAB PO SCH (08:28)
[2016-11-24] MEDS: ASPIRIN 325 MG TAB PO SCH (08:29)
[2016-11-24] MEDS: LISINOPRIL 20 MG TAB PO SCH (09:00)
[2016-11-24 12:51] VITALS: BP 170/86; PULSE 67
== END 2016-11-24 15:34 | disposition home health service (06) | DRG 57 ==
LOC: BREH 11-17 13:50
PROVIDERS: ADMIT Internal Medicine; ATTEND Internal Medicine
DX: I69.398 Other sequelae of cerebral infarction (principal); H81.49 Vertigo of central origin, unspecified ear; H53.8 Other visual disturbances; I69.393 Ataxia following cerebral infarction; I10 Essential (primary) hypertension; E11.9 Type 2 diabetes mellitus without complications; E78.5 Hyperlipidemia, unspecified; Z85.038 Personal history of other malignant neoplasm of large intestine; Z90.49 Acquired absence of other specified parts of digestive tract
CPT/HCPCS: 92507-GN; 92522-GN; 97110-GO; 97110-GP; 97112-GP; 97116-GP; 97162-GP; 97165-GO; 97530-GO; 97530-GP; 97532-GO; 97535-GO; J1650

== ENCOUNTER 2017-02-14 08:14 | Day surgery (SDC) | payer BC ==
[2017-02-14] MEDS ORDERED: LIDOCAINE 1% 300 MG/30 ML SDV ONE (08:46)
--- NOTE | 2017-02-14 09:57 | SUROPNOTE ---
[facility] Operative Report - Surgery PROCEDURE: LINQ IMPLANT INDICATION: CRYPTOGENIC STROKE WITH CO OP ASSESSMENT FOR PAROXYSMAL ATRIAL FIBRILLATION DETAILS: After consent was obtained, the patient was prepped and draped in the usual sterile fashion. Identification of the 2nd and 3rd intercostal space by palpation. Lidocaine was used for local anesthetic (1%). A small incision was made with a #12 blade followed by width adjustment with provided blade. The delivery rail system was then inserted and the LINQ was delivered without complication or incident. LINQ SN: [id number] Three sherry were used to close the incision, and the device was interrogated to ensure interpretable waveform. No complications. Follow up with cardiology is scheduled.
== END 2017-02-14 10:15 | disposition home or self-care (01) ==
LOC: FCATH 08:14
PROVIDERS: ATTEND Internal Medicine Cardiovascular Disease
PROC: 0JH602Z Insertion of Monitoring Device into Chest Subcutaneous Tissue and Fascia, Open Approach (ICD-10-PCS; principal; 2017-02-14)
DX: R94.31 Abnormal electrocardiogram [ECG] [EKG] (principal); Z86.73 Personal history of transient ischemic attack (TIA), and cerebral infarction without residual deficits; I10 Essential (primary) hypertension; E78.5 Hyperlipidemia, unspecified; E11.9 Type 2 diabetes mellitus without complications; F17.200 Nicotine dependence, unspecified, uncomplicated
CPT/HCPCS: C1764